=== PATIENT | male | born 1955 | race Caucasian/White ===

== ENCOUNTER 2018-08-25 12:40 | Emergency (ER) | payer SELFPAY ==
[~2018-08-25] VITALS: Ht 162.6 cm; Wt 96.9 kg
[2018-08-25] MEDS ORDERED: IV NORMAL SALINE 1,000ML 1,000 ML IV SCH (12:55)
[2018-08-25 13:23] LABS: BASO # 0.1 x10^3/uL (0.0-0.2); BASO % 1 % (0-3); EOS # 0.6 x10^3/uL (0.0-0.7); EOS % 6 % (0-3); HEMOGLOBIN 14.4 g/dL (13.0-17.5); LYMPH # 1.9 x10^3/uL (1.0-4.8); LYMPH % 17 % (24-48); MEAN CORPUSCULAR HEMOGLOBIN 31 pg (25-35); MEAN CORPUSCULAR HGB CONC 34 g/dL (31-37); MEAN CORPUSCULAR VOLUME 90 fL (79-100); MONO # 0.8 x10^3/uL (0.0-1.1); MONO % 7 % (0-9); NEUT # 7.8 x10^3uL (1.8-7.7); NEUT % 70 % (31-73); PLATELET COUNT 241 x10^3/uL (140-400); RED BLOOD COUNT 4.66 x10^6/uL (4.30-5.70); RED CELL DISTRIBUTION WIDTH 13.2 % (11.5-14.5); WHITE BLOOD COUNT 11.2 x10^3/uL (4.0-11.0)
--- NOTE | 2018-08-25 13:28 | RAD ---
Chest, 2 views, 08/25/2018: HISTORY: Shortness of breath The heart size is normal. There is calcific plaquing of the aorta. A dense nodule in the right lower chest is probably a granuloma. There are slightly prominent basilar interstitial markings. No pulmonary consolidation is seen. There is no evidence of pleural fluid. Moderate hypertrophic spurring is present in the spine. IMPRESSION: Minimal basilar interstitial prominence is likely due to fibrosis, although early or mild interstitial edema cannot be excluded. Electronically signed by: Peter Baig MD (08/25/2018 1:25 PM) [facility]
[2018-08-25 13:45] LABS: ALBUMIN 3.2 g/dL (3.4-5.0); ALBUMIN/GLOBULIN RATIO 0.8 (1.0-1.7); CALCIUM 8.9 mg/dL (8.5-10.1); CREATININE 0.9 mg/dL (0.7-1.3); GFR 85.8; TOTAL BILIRUBIN 0.3 mg/dL (0.2-1.0)
[2018-08-25] MEDS ORDERED: IV NORMAL SALINE 50ML 50 ML ONE (13:45)
[2018-08-25] MEDS ORDERED: IPRATRPIUM/ALBUTEROL 0.5/2.5MG 3 ML NEBU. NEB ONE (13:45)
[2018-08-25] MEDS ORDERED: KETOROLAC 30 MG/ML VIAL. IV ONE (13:45)
[2018-08-25] MEDS ORDERED: methylPREDNISolone SOD SUCC PF 125 MG/2 ML VIAL. IV ONE (13:45)
[2018-08-25] MEDS ORDERED: cefTRIAXone SODIUM 1 GM VIAL IV ONE (13:45)
[2018-08-25 13:46] LABS: POTASSIUM 4.4 mmol/L (3.5-5.1)
--- NOTE | 2018-08-25 13:49 | PHYS DOC ---
Past History Past Medical History: COPD Past Surgical History: No Surgical History Smoking: Quit Less Than 1 Year Additional Smoking Information: states he was an every day smoker for 48 yrs, quit last month Alcohol Use: None Drug Use: None Adult General Chief Complaint Chief Complaint: SHORTNESS OF BREATH [facility] HPI Patient is a 63 year old male who presents with complaining of shortness of breath. Patient complaining of constant shortness of breath that getting worse with activity for the last 2 days and associated with productive cough with yellow sputum without chest pain, fever, sick contacts, nausea and vomiting, sore throat and earache. Patient complaining of mild myalgia and headache without neck pain. Patient had history of COPD and quit smoking one month ago and took leftover of inhaler at home without improvement. Patient was not seen by a primary care physician for several years. Review of Systems Review of Systems Constitutional: Denies fever or chills [] Eyes: Denies change in visual acuity, redness, or eye pain [] HENT: Denies nasal congestion or sore throat [] Respiratory: Reports cough and shortness of breath Cardiovascular: No additional information not addressed in HPI [] GI: Denies abdominal pain, nausea, vomiting, bloody stools or diarrhea [] : Denies dysuria or hematuria [] Musculoskeletal: Denies back pain or joint pain [] Integument: Denies rash or skin lesions [] Neurologic: Denies headache, focal weakness or sensory changes [] Endocrine: Denies polyuria or polydipsia [] All other systems were reviewed and found to be within normal limits, except as documented in this note. Current Medications Current Medications Current Medications Medications (Trade) Dose Ordered Sig/[facility] Start Time Stop Time Status Last Admin Dose Admin Albuterol/ Ipratropium (Duoneb) 3 ml 1X ONCE 08/25/18 13:45 08/25/18 13:46 08/25/18 13:20 3 ML Ceftriaxone Sodium 1 gm/ Sodium Chloride 50 ml @ 100 mls/hr 1X ONCE 08/25/18 13:45 08/25/18 14:14 Ketorolac Tromethamine (Toradol 30mg Vial) 30 mg 1X ONCE 08/25/18 13:45 08/25/18 13:46 Methylprednisolone Sodium Succinate (SOLU-Medrol 125MG VIAL) 125 mg 1X ONCE 08/25/18 13:45 08/25/18 13:46 08/25/18 13:32 125 MG Sodium Chloride 1,000 ml @ 1,000 mls/hr Q1H 08/25/18 12:55 08/25/18 13:54 08/25/18 13:31 1,000 MLS/HR Allergies Allergies Allergies Coded Allergies Type Severity Reaction Last Updated Verified No Known Drug Allergies 08/25/18 No Physical Exam Physical Exam Constitutional: Well developed, well nourished, mild distress, non-toxic appearance. [] HENT: Normocephalic, atraumatic, bilateral external ears normal, oropharynx moist, no oral exudates, nose normal. [] Eyes: PERRLA, EOMI, conjunctiva normal, no discharge. [] Neck: Normal range of motion, no tenderness, supple, no stridor. [] Cardiovascular:Heart rate regular rhythm, no murmur [] Lungs & Thorax: Mild respiratory distress with intercostal retraction, decrease of air movement bilaterally with rhonchi Abdomen: Bowel sounds normal, soft, no tenderness, no masses, no pulsatile masses. [] Skin: Warm, dry, no erythema, no rash. [] Back: No tenderness, no CVA tenderness. [] Extremities: No tenderness, no cyanosis, no clubbing, ROM intact, no edema. [] Neurologic: Alert and oriented X 3, normal motor function, normal sensory function, no focal deficits noted. [] Psychologic: Affect normal, judgement normal, mood normal. [] Current Patient Data Vital Signs Vital Signs Date Time Temp Pulse Resp B/P (MAP) Pulse Ox O2 Delivery O2 Flow Rate FiO2 08/25/18 13:21 97 Room Air 08/25/18 12:40 98.5 95 28 Lab Results Laboratory Tests Test 08/25/18 13:05 White Blood Count 11.2 x10^3/uL (4.0-11.0) H Red Blood Count 4.66 x10^6/uL (4.30-5.70) Hemoglobin 14.4 g/dL (13.0-17.5) Hematocrit 42.0 % (39.0-53.0) Mean Corpuscular Volume 90 fL (79-100) Mean Corpuscular Hemoglobin 31 pg (25-35) Mean Corpuscular Hemoglobin Concent 34 g/dL (31-37) Red Cell Distribution Width 13.2 % (11.5-14.5) Platelet Count 241 x10^3/uL (140-400) Neutrophils (%) (Auto) 70 % (31-73) Lymphocytes (%) (Auto) 17 % (24-48) L Monocytes (%) (Auto) 7 % (0-9) Eosinophils (%) (Auto) 6 % (0-3) H Basophils (%) (Auto) 1 % (0-3) Neutrophils # (Auto) 7.8 x10^3uL (1.8-7.7) H Lymphocytes # (Auto) 1.9 x10^3/uL (1.0-4.8) Monocytes # (Auto) 0.8 x10^3/uL (0.0-1.1) Eosinophils # (Auto) 0.6 x10^3/uL (0.0-0.7) Basophils # (Auto) 0.1 x10^3/uL (0.0-0.2) Troponin I Quantitative 0.096 ng/mL (0-0.055) H EKG EKG EKG interpreted by me. EKG at 1359 showed normal sinus rhythm at rate of 84, abnormal left axis deviation, anterior fascicular block, poor R-wave progress in anteroseptal leads, no acute ST and T-wave abnormalities, Radiology/Procedures Radiology/[place] [address] IMAGING REPORT Signed PATIENT: AMITA ROSARIO ACCOUNT: [id number] : 1955 LOCATION: ER AGE: 63 SEX: M EXAM STATUS: REG ER ORD. PHYSICIAN: MARITO MYRICK MD REASON: shortness of breath PROCEDURE: CHEST PA & LATERAL Chest, 2 views, 08/25/2018: HISTORY: Shortness of breath The heart size is normal. There is calcific plaquing of the aorta. A dense nodule in the right lower chest is probably a granuloma. There are slightly prominent basilar interstitial markings. No pulmonary consolidation is seen. There is no evidence of pleural fluid. Moderate hypertrophic spurring is present in the spine. IMPRESSION: Minimal basilar interstitial prominence is likely due to fibrosis, although early or mild interstitial edema cannot be excluded. Electronically signed by: Peter Walker MD (08/25/2018 1:25 PM) [facility] DICTATED AND SIGNED BY: PETER WALKER MD DATE: 08/25/18 1323 CC: MARITO MYRICK MD; PCP,NO ~ Course & Med Decision Making Course & Med Decision Making Pertinent Labs and Imaging studies reviewed. (See chart for details) Evaluation of patient in ER showed 63-year-old male patient with history of COPD and complaining of cough and shortness of breath for several days. Patient had mild respiratory distress improved with DuoNeb and Solu-Medrol. Patient refuses hospitalization even his troponin was elevated and wanted to go home and taken off his 5 and 9 years old sons. Patient signed AGAINST MEDICAL ADVICE. Dragon Disclaimer Dragon Disclaimer This electronic medical record was generated, in whole or in part, using a voice recognition dictation system. Departure Departure: Impression: Primary Impression: COPD exacerbation Additional Impressions: Elevated troponin Noncompliance by refusing service CHF (congestive heart failure) Disposition: 07 AGAINST MEDICAL ADVICE (at 1431) Condition: IMPROVED Referrals: PCP,NO (PCP) Patient Instructions: Chronic Obstructive Pulmonary Disease, Chronic Obstructive Pulmonary Disease Exacerbation, Heart Disease Prevention, Heart Failure Additional Instructions: Follow-up with your primary care physician in 1-2 days Return to ER if not getting better Scripts Albuterol Sulfate (PROAIR HFA INHALER) 8.5 Gm Hfa.aer.ad 2 PUFF INH PRN Q6HRS PRN for SHORTNESS OF BREATH, #1 INHALER 0 Refills Prov: MARITO MYRICK MD 08/25/18 Prednisone (PREDNISONE) 50 Mg Tablet 1 TAB PO DAILY, #7 TAB Prov: MARITO MYRICK MD 08/25/18 Azithromycin (ZITHROMAX) 250 Mg Tablet 1 PKG PO UD, #1 PKG Prov: MARITO MYRICK MD 08/25/18 Benzonatate (TESSALON PERLE) 100 Mg Capsule 1 CAP PO TID, #30 CAP Prov: MARITO MYRICK MD 08/25/18 Problem Qualifiers MARITO MYRICK MD Aug 25, 2018 13:49
[2018-08-25] MEDS ORDERED: AZIT250T PO (14:35)
[2018-08-25] MEDS ORDERED: BENZ100C PO (14:35)
[2018-08-25] MEDS ORDERED: PRED50TA PO (14:35)
[2018-08-25] MEDS ORDERED: ALBU8.5H8 INH (14:36)
[2018-08-25 14:45] VITALS: BP 138/88
--- NOTE | 2018-08-25 15:53 | EKG ---
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
== END 2018-08-25 14:45 | disposition left against medical advice (07) ==
LOC: ER 12:40
DX: J44.1 Chronic obstructive pulmonary disease with (acute) exacerbation (principal); Z91.19 Patient's noncompliance with other medical treatment and regimen; I50.9 Heart failure, unspecified; Z87.891 Personal history of nicotine dependence
CPT/HCPCS: 36415; 71046; 80053; 82550; 83880; 84484; 85025; 93005; 94640; 96365; 96375; 99285; J0696; J1885; J2930; J7620; J7030

== ENCOUNTER 2018-09-15 13:53 | Emergency (ER) | payer SELFPAY ==
[~2018-09-15 13:53] MED LIST: ALBU8.5H8 INH; AZIT250T PO; BENZ100C PO; PRED50TA PO
[2018-09-15 14:06] VITALS: BP 162/110
[2018-09-15] MEDS ORDERED: methylPREDNISolone SOD SUCC PF 125 MG/2 ML VIAL. IM ONE (14:30)
[2018-09-15] MEDS ORDERED: IPRATRPIUM/ALBUTEROL 0.5/2.5MG 3 ML NEBU. NEB ONE (14:30)
[2018-09-15] MEDS ORDERED: methylPREDNISolone SOD SUCC PF 125 MG/2 ML VIAL. ONE (14:36)
[2018-09-15] MEDS ORDERED: METH4TAB2 PO (15:10)
--- NOTE | 2018-09-15 15:10 | PHYS DOC ---
Past History Past Medical History: COPD Past Surgical History: No Surgical History Smoking: Quit Less Than 1 Year Alcohol Use: None Drug Use: None Adult General Chief Complaint Chief Complaint: SHORTNESS OF BREATH HPI HPI Patient is a 63 year old male who presents with complaining of shortness of breath since yesterday that getting worse today. Patient states he was going to his doctor office but while got out of his car and walking toward the hospital felt more shortness of breath and decided to come to ER. Patient denies cough, chest pain, fever and chills, dizziness, focal neuro deficit. Patient was seen in this emergency room recently with extensive evaluation and states he felt better after treatment given in emergency room. Patient refuses hospitalization last time and doesn't want to stay at Hospital this time also. Review of Systems Review of Systems Constitutional: Denies fever or chills [] Eyes: Denies change in visual acuity, redness, or eye pain [] HENT: Denies nasal congestion or sore throat [] Respiratory: Denies cough or shortness of breath [] Cardiovascular: No additional information not addressed in HPI [] GI: Denies abdominal pain, nausea, vomiting, bloody stools or diarrhea [] : Denies dysuria or hematuria [] Musculoskeletal: Denies back pain or joint pain [] Integument: Denies rash or skin lesions [] Neurologic: Denies headache, focal weakness or sensory changes [] Endocrine: Denies polyuria or polydipsia [] All other systems were reviewed and found to be within normal limits, except as documented in this note. Current Medications Current Medications Current Medications Medications (Trade) Dose Ordered Sig/[facility] Start Time Stop Time Status Last Admin Dose Admin Albuterol/ Ipratropium (Duoneb) 3 ml 1X ONCE 09/15/18 14:30 09/15/18 14:36 DC 09/15/18 14:41 3 ML Methylprednisolone Sodium Succinate (SOLU-Medrol 125MG VIAL) 125 mg STK-MED ONCE 09/15/18 14:36 09/15/18 14:37 DC Allergies Allergies Allergies Coded Allergies Type Severity Reaction Last Updated Verified No Known Drug Allergies 08/25/18 No Physical Exam Physical Exam Constitutional: Well developed, well nourished, mild distress, non-toxic appearance. [] HENT: Normocephalic, atraumatic, bilateral external ears normal, oropharynx moist, no oral exudates, nose normal. [] Eyes: PERRLA, EOMI, conjunctiva normal, no discharge. [] Neck: Normal range of motion, no tenderness, supple, no stridor. [] Cardiovascular:Heart rate regular rhythm, no murmur [] Lungs & Thorax: Bilateral breath sounds clear to auscultation [] Abdomen: Bowel sounds normal, soft, no tenderness, no masses, no pulsatile masses. [] Skin: Warm, dry, no erythema, no rash. [] Back: No tenderness, no CVA tenderness. [] Extremities: No tenderness, no cyanosis, no clubbing, ROM intact, no edema. [] Neurologic: Alert and oriented X 3, normal motor function, normal sensory function, no focal deficits noted. [] Psychologic: Affect anxious, judgement normal, mood normal. [] Current Patient Data Vital Signs Vital Signs Date Time Temp Pulse Resp B/P (MAP) Pulse Ox O2 Delivery O2 Flow Rate FiO2 09/15/18 14:06 101 24 97 Room Air EKG EKG [] Radiology/Procedures Radiology/Procedures [] Course & Med Decision Making Course & Med Decision Making discharge: I've spoken with the patient and/or caregivers. I've explained the patient's condition, diagnosis and treatment plan based on information available to me at this time. I've answered the patient's and/or caregivers questions and addressed any concerns. The patient and/or caregivers have a good understanding the patient's diagnosis, condition and treatment plan as can be expected at this point. Vital signs have been stabilized. The patient's condition is stable for discharge from the emergency department. The patient will pursue further outpatient evaluation with her primary care provider or other designated consulting physician as outlined in the discharge instructions. Patient and/or caregivers are agreeable to this plan of care and follow-up instructions have been explained in detail. The patient and/or caregivers have received these instructions in written format and expressed understanding of these discharge instructions. The patient and her caregivers are aware that if any significant change in condition or worsening of symptoms should prompt him to immediately return to this of the closest emergency department. If an emergent department is not readily available I would encourage him to call 911. Kaylin Disclaimer Kaylin Disclaimer This electronic medical record was generated, in whole or in part, using a voice recognition dictation system. Departure Departure: Impression: Primary Impression: Dyspnea Additional Impression: COPD (chronic obstructive pulmonary disease) Disposition: HOME, SELF-CARE (at 1509) Condition: IMPROVED Referrals: STEPHANIE FERMIN MD (PCP) Patient Instructions: Shortness of Breath Additional Instructions: Drink plenty of liquids Follow-up with your primary care physician in 3-5 days Return to ER if not getting better Scripts Methylprednisolone (MEDROL) 4 Mg Tab.ds.pk 1 PKG PO UD for as directed, #1 PKG Prov: MARITO MYRICK MD 09/15/18 Problem Qualifiers MARITO MYRICK MD Sep 15, 2018 15:10
== END 2018-09-15 15:20 | disposition home or self-care (01) ==
LOC: ER 13:53
DX: J44.9 Chronic obstructive pulmonary disease, unspecified (principal); Z87.891 Personal history of nicotine dependence
CPT/HCPCS: 94640; 96372; 99283; J2930; J7620

== ENCOUNTER 2018-09-18 09:19 | Inpatient (IN) | payer SELFPAY ==
[~2018-09-18] VITALS: Ht 165.1 cm; Wt 99.2 kg
[~2018-09-18 09:19] MED LIST changes: +METH4TAB2 PO
[2018-09-18] MEDS ORDERED: IPRATROPIUM BROMIDE 0.5 MG/2.5 ML NEBU. NEB ONE (09:30)
[2018-09-18] MEDS ORDERED: ALBUTEROL SULFATE 2.5 MG/3 ML NEBU. CONT NEB ONE (09:30)
[2018-09-18] MEDS ORDERED: IPRATRPIUM/ALBUTEROL 0.5/2.5MG 3 ML NEBU. NEB ONE (09:30)
[2018-09-18] MEDS ORDERED: predniSONE 20 MG TABLET PO ONE (09:45)
--- NOTE | 2018-09-18 10:10 | RAD ---
EXAM: CHEST 1 VIEW History: Shortness of breath COMPARISON: 08/25/2018 TECHNIQUE: Single portable radiograph of the chest FINDINGS: Mild cardiomegaly. There is mild prominent appearing bilateral interstitial lung markings. Minimal bibasilar lung airspace opacities. IMPRESSION: 1. Mild congestive changes. 2. Minimal bibasilar lung airspace opacities likely atelectasis or infiltrates. Electronically signed by: Alphonso San MD (09/18/2018 10:07 AM) [facility]
[2018-09-18] MEDS ORDERED: IOHEXOL 300 MG/ML 75 ML VIAL. IV ONE (10:30)
--- NOTE | 2018-09-18 10:43 | EKG ---
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
[2018-09-18 11:06] LABS: BASO % 0 % (0-3); EOS # 0.2 x10^3/uL (0.0-0.7); EOS % 2 % (0-3); HEMATOCRIT 44.4 % (39.0-53.0); HEMOGLOBIN 14.4 g/dL (13.0-17.5); LYMPH # 2.8 x10^3/uL (1.0-4.8); LYMPH % 24 % (24-48); MEAN CORPUSCULAR HEMOGLOBIN 30 pg (25-35); MEAN CORPUSCULAR HGB CONC 32 g/dL (31-37); MEAN CORPUSCULAR VOLUME 91 fL (79-100); MONO # 1.1 x10^3/uL (0.0-1.1); MONO % 10 % (0-9); NEUT # 7.6 x10^3uL (1.8-7.7); NEUT % 65 % (31-73); PLATELET COUNT 255 x10^3/uL (140-400); RED BLOOD COUNT 4.85 x10^6/uL (4.30-5.70); RED CELL DISTRIBUTION WIDTH 13.6 % (11.5-14.5); WHITE BLOOD COUNT 11.7 x10^3/uL (4.0-11.0)
--- NOTE | 2018-09-18 11:07 | RAD ---
Examination: CT angiography chest HISTORY: History of shortness of breath COMPARISON: None available TECHNIQUE: Axial CT angiographic images were performed with IV contrast. Coronal and sagittal 3-D MIP reformats are performed Exposure: One or more of the following individualized dose reduction techniques were utilized for this examination: 1. Automated exposure control 2. Adjustment of the mA and/or kV according to patient size 3. Use of iterative reconstruction technique FINDINGS: The visualized thyroid gland grossly appears unremarkable. The central airways are patent. Mild cardiomegaly. The caliber of the aorta grossly appears unremarkable. Few prominent mediastinal lymph nodes identified with the largest measuring 1 cm in the pretracheal region. No evidence of filling defect identified in the main pulmonary arterial trunk and right and left main pulmonary arteries and the visualized lobar, segmental branches of the pulmonary arteries. There is mild prominent appearing bilateral interstitial lung markings likely mild congestive changes. Small 4 mm nodule identified in the left upper lobe of the lung and the right lower lobe of the lung. Trace right pleural effusion identified. There is mild reflux of contrast into the hepatic veins and the inferior vena cava probably due to elevated right heart pressure.. There is a 3.5 cm density identified in the left adrenal gland measuring 5 Hounsfield units and demonstrating some fat within adrenal myelolipoma. Mild degenerative changes thoracic spine. IMPRESSION: 1. Diffuse prominent appearing bilateral interstitial lung markings likely mild congestive changes. 2. 4 mm nodule identified in the left upper lobe and right lower lobe of the lung. Follow-up per Fleischner Society guidelines with follow-up CT in 6-12 months. 3. No evidence of pulmonary embolism. 4. 3.5 cm left adrenal myelolipoma. Electronically signed by: Alphonso San MD (09/18/2018 11:04 AM) [facility]
[2018-09-18 11:26] LABS: CALCIUM 8.4 mg/dL (8.5-10.1); CREATININE 0.9 mg/dL (0.7-1.3); GFR 85.8; POTASSIUM 4.2 mmol/L (3.5-5.1)
[2018-09-18] MEDS ORDERED: FUROSEMIDE 40 MG/4 ML VIAL IVP ONE (11:30)
[2018-09-18 11:34] LABS: BGAS PH 7.39 (7.35-7.46)
--- NOTE | 2018-09-18 11:45 | ED.ADGEN ---
Past History Past Medical History: COPD Past Surgical History: No Surgical History Smoking: Quit Less Than 1 Year Alcohol Use: None Drug Use: None Adult General Chief Complaint Chief Complaint Shortness of breath HPI HPI Patient is a 63-year-old male with history of COPD who presents with progressive shortness of breath over the past several days. Patient's been evaluated in the emergency department twice within the past 30 days for the same complaint. Patient as recently, the patient was evaluated 3 days ago and treated for COPD exacerbation and started on a Medrol Dosepak which she is taking. Patient symptoms are worse with exertion, when supine. Reports chest tightness, denies chest pain. Denies increased leg pain or swelling. No history of DVT or PE. Patient is a former smoker and quit within the past 30 days. 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 [] Review of Systems Review of Systems Review symptoms as per history of present illness. All other review symptoms are negative.[] All other systems were reviewed and found to be within normal limits, except as documented in this note. Current Medications Current Medications Current Medications Medications (Trade) Dose Ordered Sig/[facility] Start Time Stop Time Status Last Admin Dose Admin Albuterol Sulfate (Ventolin) 10 mg 1X ONCE 09/18/18 09:30 09/18/18 09:45 DC 09/18/18 09:37 10 MG Albuterol/ Ipratropium (Duoneb) 3 ml 1X ONCE 09/18/18 09:30 09/18/18 09:32 DC Furosemide (Lasix) 40 mg 1X ONCE 09/18/18 11:30 09/18/18 11:31 DC 09/18/18 11:41 40 MG Iohexol (Omnipaque 300 Mg/ml) 75 ml 1X ONCE 09/18/18 10:30 09/18/18 10:31 DC 09/18/18 10:36 75 ML Ipratropium [place] (Atrovent) 1 mg 1X ONCE 09/18/18 09:30 09/18/18 09:45 DC 09/18/18 09:38 1 MG Prednisone (Prednisone) 60 mg 1X ONCE 09/18/18 09:45 09/18/18 09:46 DC 09/18/18 10:01 60 MG Allergies Allergies Allergies Coded Allergies Type Severity Reaction Last Updated Verified No Known Drug Allergies 08/25/18 No Physical Exam Physical Exam Constitutional: Well developed, well nourished, no acute distress, non-toxic appearance. [] HENT: Normocephalic, atraumatic, bilateral external ears normal, oropharynx moist, no oral exudates, nose normal. [] Eyes: PERRLA, EOMI, conjunctiva normal, no discharge. [] Neck: Normal range of motion, no tenderness, supple, no stridor. [] Cardiovascular:Heart rate regular rhythm, no murmur [] Lungs & Thorax: Aspirations labored, tachypnea, rate 38-42 with prolonged expiratory phase and conversational dyspnea, significantly diminished breath sounds bilaterally with coarse wheezes[] Abdomen: Bowel sounds normal, soft, no tenderness, no masses, no pulsatile masses. [] Skin: Warm, dry, no erythema, no rash. [] Back: No tenderness, no CVA tenderness. [] Extremities: No tenderness, no cyanosis, no clubbing, ROM intact, no edema. [] Neurologic: Alert and oriented X 3, normal motor function, normal sensory function, no focal deficits noted. [] Psychologic: Affect, anxious. [] Current Patient Data Vital Signs Vital Signs Date Time Temp Pulse Resp B/P (MAP) Pulse Ox O2 Delivery O2 Flow Rate FiO2 09/18/18 09:42 99 Room Air 09/18/18 09:20 97.4 98 30 Lab Results Laboratory Tests Test 09/18/18 10:14 09/18/18 10:52 Blood pH 7.39 (7.35-7.46) Blood Gas PCO2 46 mmHg (35-46) Blood Gas PO2 71 mmHg (80-100) L Blood Gas HCO3 28 mmol/L (21-28) Arterial Bld O2 Saturation (Calc) 94 % (92-99) FiO2 21 % White Blood Count 11.7 x10^3/uL (4.0-11.0) H Red Blood Count 4.85 x10^6/uL (4.30-5.70) Hemoglobin 14.4 g/dL (13.0-17.5) Hematocrit 44.4 % (39.0-53.0) Mean Corpuscular Volume 91 fL (79-100) Mean Corpuscular Hemoglobin 30 pg (25-35) Mean Corpuscular Hemoglobin Concent 32 g/dL (31-37) Red Cell Distribution Width 13.6 % (11.5-14.5) Platelet Count 255 x10^3/uL (140-400) Neutrophils (%) (Auto) 65 % (31-73) Lymphocytes (%) (Auto) 24 % (24-48) Monocytes (%) (Auto) 10 % (0-9) H Eosinophils (%) (Auto) 2 % (0-3) Basophils (%) (Auto) 0 % (0-3) Neutrophils # (Auto) 7.6 x10^3uL (1.8-7.7) Lymphocytes # (Auto) 2.8 x10^3/uL (1.0-4.8) Monocytes # (Auto) 1.1 x10^3/uL (0.0-1.1) Eosinophils # (Auto) 0.2 x10^3/uL (0.0-0.7) Basophils # (Auto) 0.0 x10^3/uL (0.0-0.2) Sodium Level 141 mmol/L (136-145) Potassium Level 4.2 mmol/L (3.5-5.1) Chloride Level 103 mmol/L (98-107) Carbon Dioxide Level 30 mmol/L (21-32) Anion Gap 8 (6-14) Blood Urea Nitrogen 24 mg/dL (8-26) Creatinine 0.9 mg/dL (0.7-1.3) Estimated GFR (Cockcroft-Gault) 85.8 Glucose Level 93 mg/dL (70-99) Calcium Level 8.4 mg/dL (8.5-10.1) L Troponin I Quantitative 0.115 ng/mL (0-0.055) H ID-Rvc-N-Type Natriuretic Peptide 805 pg/mL (0-124) H EKG EKG [EKG: Normal sinus rhythm without acute ST segment elevation] Radiology/Procedures Radiology/Procedures [Chest x-ray/CTA chest: Pulmonary vascular congestion, no evidence of PE.] Course & Med Decision Making Course & Med Decision Making Pertinent Labs and Imaging studies reviewed. (See chart for details) [Patient with mild to moderate respiratory distress with COPD exacerbation and suspected undiagnosed congestive heart failure and concern for possible acute coronary syndrome. Nebulized breathing treatment, steroids and Lasix given with significant improvement. Patient agrees to hospital admission for further evaluation treatment] Final Impression Final Impression [] Dragon Disclaimer Dragon Disclaimer This electronic medical record was generated, in whole or in part, using a voice recognition dictation system. TEJA GARCIA DO Sep 18, 2018 11:45
[2018-09-18] MEDS ORDERED: ONDANSETRON PF 4 MG/2 ML VIAL. IV PRN (13:00)
[2018-09-18 13:55] VITALS: BP 153/90
--- NOTE | 2018-09-18 17:12 | HP ---
ADMIT DATE: 09/18/2018 HISTORY OF PRESENT ILLNESS: The patient is a 63-year-old male patient with a past medical history significant for COPD, who came to the Emergency Room complaining of progressive shortness of breath over the past several days. He apparently has been evaluated in the Emergency Department twice within the last 30 days for the same complaint. He was recently treated with COPD exacerbation. He was started on Medrol Dosepak. The patient's symptoms have been worse with exertion. He has also what seemed to be orthopnea, chest tightness; however, he denied any chest pain. Denied any swelling of the legs. Denied any cough, phlegm, or hemoptysis. He has never had any history of DVT or PE. He is a former smoker, started smoking when he was at the seventh grade and has been smoking a pack a day for all this time. He quit about a month and half ago. 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 PAST MEDICAL HISTORY: Significant for COPD and generalized osteoarthritis. He apparently was seen about 2 years ago by a security escort and underwent pulmonary function test, which showed that he has severe COPD. PAST SURGICAL HISTORY: Significant for tonsillectomy. ALLERGIES: He has no known drug allergies. MEDICATIONS: He is on albuterol inhaler and has received a course of Zithromax as well as tapering course of steroids. FAMILY HISTORY: He is adopted. He does not know his biological parents. SOCIAL HISTORY: He is , has 2 children. He is an ex-smoker, used to smoke a pack a day for more than 45 years. He quit about a month and half ago. He drinks alcohol very occasionally. He does not use any drugs. 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 REVIEW OF SYSTEMS: The patient denied any blurring of vision, cataract, glaucoma or macular degeneration. Denied any earache, tinnitus or sensorineural deafness. Denied any nosebleeds, stuffy nose or postnasal drip. Denied any sore throat, sore tongue, toothache, hoarseness of voice or difficulty swallowing. Denied any nausea, vomiting, diarrhea or constipation. Denied any hematemesis, melena or hematochezia. Denied any dysuria, frequency or hematuria. Denied any chest pain. Did complain of shortness of breath and orthopnea. Denied any paroxysmal nocturnal dyspnea. Denied any cough, phlegm or hemoptysis. His shortness of breath limits how much he can walk. Denied any dizziness, lightheadedness or vertigo. Denied any chills, rigors or fever. PHYSICAL EXAMINATION: GENERAL: On arrival to the Emergency Room, the patient was clearly tachypneic, but there is no pallor, jaundice or cyanosis. No lymphadenopathy. No thyromegaly. No jugular venous distension. No lower limb edema. VITAL SIGNS: His heart rate was 98, blood pressure was 174/98, temperature was 97.4, respiratory rate was 30, and oxygen saturation was 95% on room air. HEAD, EYES, EARS, NOSE AND THROAT: Showed normocephalic, atraumatic. NECK: Supple. HEART: Showed normal first and second heart sounds with no gallop, rub or murmur. CHEST: Clear to auscultation. No crepitation or rhonchi. ABDOMEN: Distended, soft, nontender. No guarding or rigidity. No organomegaly. All hernial orifices intact. Bowel sounds normal. NEUROLOGIC: He is awake, alert, responding appropriately. All cranial nerves intact. He moves extremities without difficulty. He ambulates without assistance or assistive devices. LABORATORY DATA: His lab work on arrival showed a white cell count of 11,700, hemoglobin 14, hematocrit 44, MCV 91, and platelet count 255,000 with normal manual differential. His chemistry showed that his serum sodium was 141, potassium 4.2, chloride 103, bicarbonate 30, anion gap of 8, BUN 24, creatinine 0.9, estimated GFR was 85 mL per minute. His glucose was 93. Lactic acid was 2.5. Calcium was 8.4. Troponin was 0.115 and beta-natriuretic peptide was 805. His blood gases showed a pH of 7.34, pCO2 of 46, pO2 of 71, bicarbonate 28, and oxygen saturation was 94% on FiO2 of 21%. His chest x-ray showed that he has mild cardiomegaly. There is mild prominent appearing bilateral interstitial lung marking, minimal bibasilar lung airspace opacities. He underwent a CT angio of the chest, which showed that the visualized thyroid gland grossly appears unremarkable. The central airways are patent, mild cardiomegaly. The caliber of the aorta grossly appears unremarkable. A few prominent mediastinal lymph nodes identified with the largest measuring 1 cm in the pretracheal region. No evidence of filling defects identified in the main pulmonary arterial trunk and right and left main pulmonary arteries and the visualized lobar segmental branches of the pulmonary arteries. There is mild prominent appearing bilateral interstitial lung marking, likely mild congestive changes, small 4 mm nodules identified in the left upper lobe of the lung and right lower lobe of the lung, trace right pleural effusion identified. There is mild reflux of the contrast into the hepatic veins and inferior vena cava probably due to elevated right heart pressure. There is a 3.5 cm density identified in the left adrenal gland measuring 5 Hounsfield units and demonstrating some fat within adrenal myelolipoma. He has mild degenerative changes throughout the thoracic spine. IMPRESSION: 1. The patient has diffuse prominent appearing bilateral interstitial lung markings, likely mild congestive changes. 2. Two 4 mm nodules identified in the left upper lobe and right lower lobe of the lung. Follow up per Fleischner Society guidelines with followup CT in 6-12 months. No evidence of pulmonary embolism. 3. A 3.5 cm left adrenal myeloma. The patient was admitted with chronic obstructive pulmonary disease exacerbation. His troponin was elevated. His EKG showed normal sinus rhythm without any ST-T changes. PLAN: My plan is to treat with IV Lasix. I will continue with nebulized albuterol and Atrovent, Solu-Medrol and do 2 more sets of cardiac enzymes, check his lipid profile tomorrow morning, and consult Cardiology team. RO ORELLANA MD DR: PHUONG/delia JOB#: [id number] / [id number]
[2018-09-18] MEDS: ENOXAPARIN 40 MG/0.4 ML SYRINGE. SQ SCH (18:14)
[2018-09-18 19:40] VITALS: BP 161/69
[2018-09-18] MEDS: IPRATRPIUM/ALBUTEROL 0.5/2.5MG 3 ML NEBU. NEB SCH (20:03)
[2018-09-18] MEDS: methylPREDNISolone SOD SUCC PF 40 MG/ML VIAL. IV SCH (22:51)
[2018-09-18 22:53] VITALS: BP 115/63
[2018-09-19 01:49] VITALS: BP 143/87
[2018-09-19] MEDS: IPRATRPIUM/ALBUTEROL 0.5/2.5MG 3 ML NEBU. NEB SCH ×4 (04:54→21:07)
[2018-09-19 06:19] VITALS: BP 112/64
[2018-09-19] MEDS: methylPREDNISolone SOD SUCC PF 40 MG/ML VIAL. IV SCH ×3 (06:30→22:29)
[2018-09-19 06:59] LABS: HEMATOCRIT 42.8 % (39.0-53.0); HEMOGLOBIN 14.2 g/dL (13.0-17.5); RED BLOOD COUNT 4.72 x10^6/uL (4.30-5.70); RED CELL DISTRIBUTION WIDTH 13.6 % (11.5-14.5); WHITE BLOOD COUNT 12.5 x10^3/uL (4.0-11.0)
[2018-09-19 07:19] LABS: ALBUMIN 3.2 g/dL (3.4-5.0); ALBUMIN/GLOBULIN RATIO 0.9 (1.0-1.7); CALCIUM 8.6 mg/dL (8.5-10.1); POTASSIUM 4.3 mmol/L (3.5-5.1); TOTAL BILIRUBIN 0.4 mg/dL (0.2-1.0); TOTAL PROTEIN 6.8 g/dL (6.4-8.2)
[2018-09-19] MEDS ORDERED: FUROSEMIDE 40 MG/4 ML VIAL IVP SCH (09:00)
[2018-09-19 11:20] VITALS: BP 120/71
--- NOTE | 2018-09-19 11:32 | PDOC2 ---
CONSULT Date of Admission DATE: 09/19/18 TIME: 11:31 Reason for Consult: Shortness of breath Referring Physician: Dr. Dwyer Chief Complaint Shortness of breath Source: Chart review, Patient Problem List Problems Medical Problems: (1) COPD exacerbation Status: Acute History of Present Illness 63-year-old male with history of COPD was recently treated for acute COPD exacerbation presented with progressive shortness of breath worse with exertion and associated with retrosternal burning chest pain. He denied any orthopnea/PND , palpitations or syncope. He was a heavy smoker in the past and stopped smoking approximately one and a half month ago. Past Medical History COPD Osteoarthritis Past Surgical History Tonsillectomy Family History Patient is adopted Social History Heavy smoker in the past and quit smoking one and a half months ago. He denied any drug abuse but admitted to occasional alcohol intake. 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 Current Medications Current Medications Albuterol/ Ipratropium (Duoneb) 3 ml 1X ONCE NEB ; Start 09/18/18 at 09:30; Stop 09/18/18 at 09:32; Status DC Albuterol Sulfate (Ventolin) 10 mg 1X ONCE CONT NEB Last administered on at 09:37; Start 09/18/18 at 09:30; Stop 09/18/18 at 09:45; Status DC Ipratropium Leona (Atrovent) 1 mg 1X ONCE NEB Last administered on at 09:38; Start 09/18/18 at 09:30; Stop 09/18/18 at 09:45; Status DC Prednisone (Prednisone) 60 mg 1X ONCE PO Last administered on 09/18/18at 10:01 ; Start 09/18/18 at 09:45; Stop 09/18/18 at 09:46; Status DC Iohexol (Omnipaque 300 Mg/ml) 75 ml 1X ONCE IV Last administered on 09/18/18at 10:36; Start 09/18/18 at 10:30; Stop 09/18/18 at 10:31; Status DC Furosemide (Lasix) 40 mg 1X ONCE IVP Last administered on 09/18/18at 11:41; Start 09/18/18 at 11:30; Stop 09/18/18 at 11:31; Status DC Ondansetron HCl (Zofran) 4 mg PRN Q4HRS PRN IV NAUSEA/VOMITING; Start 09/18/18 at 13:00; Stop 09/19/18 at 12:59 Methylprednisolone Sodium Succinate (SOLU-Medrol 40MG VIAL) 40 mg Q8HRS IV Last administered on 09/19/18at 06:30; Start 09/18/18 at 22:00 Albuterol/ Ipratropium (Duoneb) 3 ml RTQID NEB Last administered on 09/19/18at 10:51; Start 09/18/18 at 20:00 Furosemide (Lasix) 40 mg DAILY IVP Last administered on 09/19/18at 08:59; Start 09/19/18 at 09:00 Enoxaparin Sodium (Lovenox 40mg Syringe) 40 mg Q24H SQ Last administered on 09/18/18at 18:14; Start 09/18/18 at 16:30 Influenza Virus Vaccine (Afluria Trivalent [id number] Syringe) 0.5 ml ONCE ONCE VAX IM ; Start 09/18/18 at 17:00; Stop 09/18/18 at 17:02; Status DC Active Scripts Active Medrol (Methylprednisolone) 4 Mg Tab.ds.pk 1 Pkg PO UD Proair Hfa Inhaler (Albuterol Sulfate) 8.5 Gm Hfa.aer.ad 2 Puff INH PRN Q6HRS PRN Prednisone 50 Mg Tablet 1 Tab PO DAILY Zithromax (Azithromycin) 250 Mg Tablet 1 Pkg PO UD Tessalon Perle (Benzonatate) 100 Mg Capsule 1 Cap PO TID Allergies: Coded Allergies: No Known Drug Allergies (Unverified , 08/25/18) PSYCHOLOGICAL ROS: No: Hallucinations Eyes: No: Loss of vision HEENT: No: Epistaxis Respiratory: YES: SOB with excertion Cardiovascular: yes: Chest Pain Gastrointestinal: No: Vomiting, Diarrhea Genitourinary: No: Dysuria Neurological: No: Seizures Skin: No: Rash General: Alert, Oriented X3 HEENT: Atraumatic, PERRLA Lungs: Other (scattered expiratory rhonchi) Heart: Regular rate Abdomen: Soft, No tenderness Extremities: No edema Psych/Mental Status: Mood NL VITALS Vital Signs Date Time Temp Pulse Resp B/P (MAP) Pulse Ox O2 Delivery O2 Flow Rate FiO2 09/19/18 11:20 98.0 82 20 120/71 (87) 94 Room Air Labs Laboratory Tests Test 09/18/18 10:14 09/18/18 10:52 09/18/18 14:48 09/18/18 18:48 Blood Gas pH 7.39 (7.35-7.46) Blood Gas PCO2 46 mmHg (35-46) Blood Gas PO2 71 mmHg (80-100) Blood Gas HCO3 28 mmol/L (21-28) Arterial Bld O2 Saturation (Calc) 94 % (92-99) FiO2 21 % White Blood Count 11.7 x10^3/uL (4.0-11.0) Red Blood Count 4.85 x10^6/uL (4.30-5.70) Hemoglobin 14.4 g/dL (13.0-17.5) Hematocrit 44.4 % (39.0-53.0) Mean Corpuscular Volume 91 fL (79-100) Mean Corpuscular Hemoglobin 30 pg (25-35) Mean Corpuscular Hemoglobin Concent 32 g/dL (31-37) Red Cell Distribution Width 13.6 % (11.5-14.5) Platelet Count 255 x10^3/uL (140-400) Neutrophils (%) (Auto) 65 % (31-73) Lymphocytes (%) (Auto) 24 % (24-48) Monocytes (%) (Auto) 10 % (0-9) Eosinophils (%) (Auto) 2 % (0-3) Basophils (%) (Auto) 0 % (0-3) Neutrophils # (Auto) 7.6 x10^3uL (1.8-7.7) Lymphocytes # (Auto) 2.8 x10^3/uL (1.0-4.8) Monocytes # (Auto) 1.1 x10^3/uL (0.0-1.1) Eosinophils # (Auto) 0.2 x10^3/uL (0.0-0.7) Basophils # (Auto) 0.0 x10^3/uL (0.0-0.2) Sodium Level 141 mmol/L (136-145) Potassium Level 4.2 mmol/L (3.5-5.1) Chloride Level 103 mmol/L (98-107) Carbon Dioxide Level 30 mmol/L (21-32) Anion Gap 8 (6-14) Blood Urea Nitrogen 24 mg/dL (8-26) Creatinine 0.9 mg/dL (0.7-1.3) Estimated GFR (Cockcroft-Gault) 85.8 Glucose Level 93 mg/dL (70-99) Calcium Level 8.4 mg/dL (8.5-10.1) Troponin I Quantitative 0.115 ng/mL (0-0.055) 0.098 ng/mL (0-0.055) IB-Dxr-F-Type Natriuretic Peptide 805 pg/mL (0-124) Lactic Acid Level 2.5 mmol/L (0.4-2.0) Test 09/19/18 06:24 White Blood Count 12.5 x10^3/uL (4.0-11.0) Red Blood Count 4.72 x10^6/uL (4.30-5.70) Hemoglobin 14.2 g/dL (13.0-17.5) Hematocrit 42.8 % (39.0-53.0) Mean Corpuscular Volume 91 fL (79-100) Mean Corpuscular Hemoglobin 30 pg (25-35) Mean Corpuscular Hemoglobin Concent 33 g/dL (31-37) Red Cell Distribution Width 13.6 % (11.5-14.5) Platelet Count 264 x10^3/uL (140-400) Sodium Level 137 mmol/L (136-145) Potassium Level 4.3 mmol/L (3.5-5.1) Chloride Level 101 mmol/L (98-107) Carbon Dioxide Level 27 mmol/L (21-32) Anion Gap 9 (6-14) Blood Urea Nitrogen 18 mg/dL (8-26) Creatinine 1.0 mg/dL (0.7-1.3) Estimated GFR (Cockcroft-Gault) 76.0 BUN/Creatinine Ratio 18 (6-20) Glucose Level 145 mg/dL (70-99) Calcium Level 8.6 mg/dL (8.5-10.1) Total Bilirubin 0.4 mg/dL (0.2-1.0) Aspartate Amino Transf (AST/SGOT) 20 U/L (15-37) Alanine Aminotransferase (ALT/SGPT) 69 U/L (16-63) Alkaline Phosphatase 68 U/L (46-116) Total Protein 6.8 g/dL (6.4-8.2) Albumin 3.2 g/dL (3.4-5.0) Albumin/Globulin Ratio 0.9 (1.0-1.7) Assessment/Plan 1. Mild acute on chronic diastolic heart failure. Diuresis with Lasix. Check 2 -D echo to assess LV systolic function. 2. Slightly elevated troponin level, most probably demand ischemia/non-STEMI type II. However, due to his risk factors, CAD needs to be ruled out. Plan for Lexiscan nuclear stress test. 3. Acute COPD exacerbation: Treat per IM Thank you for your consultation ABRAHAM MCGEE MD Sep 19, 2018 11:32
[2018-09-19 14:23] VITALS: BP 127/58
[2018-09-19] MEDS: ENOXAPARIN 40 MG/0.4 ML SYRINGE. SQ SCH (17:15)
[2018-09-19 19:20] VITALS: BP 125/69
[2018-09-19 22:00] VITALS: BP 145/79
--- NOTE | 2018-09-20 01:14 | PN ---
DATE: 09/19/2018 SUBJECTIVE: The patient is resting, slightly propped up, definitely feeling much better today. He is not as tachypneic. He is not short of breath. He is able to finish his sentence compared to yesterday. We did treat him with IV Lasix yesterday and this morning. He is also on Solu-Medrol and nebulized albuterol and Atrovent. OBJECTIVE: GENERAL: When I saw him this afternoon, he looked well and was clearly in no apparent respiratory distress. No pallor, jaundice, cyanosis, or thyromegaly. No jugular venous distension. No lower limb edema. VITAL SIGNS: Her heart rate was 82, blood pressure 120/70, temperature was 98, respiratory rate was 20, and oxygen saturation was 94% on room air. HEAD, EYES, EARS, NOSE AND THROAT: Normocephalic, atraumatic. NECK: Supple. HEART: Showed normal first and second heart sounds with no gallop, rub or murmur. CHEST: Showed central trachea, equally reduced expansion, reduced air entry. No crepitation or rhonchi. ABDOMEN: Markedly distended, soft, nontender. NEUROLOGIC: He is awake, alert, and responding appropriately. All cranial nerves intact. He moves extremities without difficulty. LABORATORY DATA: Showed a white cell count is 12,500, hemoglobin 14, hematocrit 42, MCV 91, and platelet count 264,000. His chemistry showed that his serum sodium was 137, potassium was 4.3, chloride 101, bicarbonate 27, anion gap of 9, BUN 18, creatinine 1, estimated GFR was 76 mL per minute, his glucose 145, calcium was 8.6. Total bilirubin, AST, ALT, alkaline phosphatase were normal. His total protein was 6.8, albumin was 3.2. Serum triglycerides were 57, total cholesterol 157, LDL was 66, VLDL was 77, HDL cholesterol was 80 and cholesterol to HDL cholesterol ratio was 1. ASSESSMENT: 1. Chronic obstructive pulmonary disease exacerbation. 2. Generalized osteoarthritis. 3. His chest x-ray showed he has interstitial ____ edema. The patient did well actually on IV Lasix. He was seen by the mud jack nozzleman, who recommended doing an echocardiogram to evaluate left ventricular systolic function. Meanwhile, we will continue with the steroids and Lasix as well as inhaler. RO ORELLANA MD DR: Johana JOB#: [id number] / [id number]
[2018-09-20 05:02] VITALS: BP 122/74
[2018-09-20] MEDS: IPRATRPIUM/ALBUTEROL 0.5/2.5MG 3 ML NEBU. NEB SCH ×2 (05:50→11:06)
[2018-09-20] MEDS: methylPREDNISolone SOD SUCC PF 40 MG/ML VIAL. IV SCH (06:09)
--- NOTE | 2018-09-20 09:02 | PDOC ---
PROGRESS NOTES Diagnosis Problem Problems Medical Problems: (1) COPD exacerbation Status: Acute Assessment Problems Medical Problems: (1) COPD exacerbation Status: Acute 1. Mild acute on chronic diastolic heart failure. clinically compensated. Await echo. 2. demand ischemia/non-STEMI type II. However, due to his risk factors, CAD needs to be ruled out. Plan for Lexiscan nuclear stress test out patient. Currently angina free. await echo and ambulate in halls. 3. Acute COPD exacerbation: Treat per IM Add Aspirin and low dose cardio selective beta tiffany. Plan for outpatient lexiscan MPI. Cholesterol well controlled. Ambulate in halls and if no recurrent chest discomfort or other new symptoms, ok to discharge pending echo review. Echo returned with LVEF 35%. Recommend cardiac cath, transfer to [facility] for cath this afternoon if patient agrees. add statin for plaque stabilization if + coronary disease. Subjective feeling much better, wants to go home, no chest pain, breathing easy, no palpitations. Objective Vital Signs Date Time Temp Pulse Resp B/P (MAP) Pulse Ox O2 Delivery O2 Flow Rate FiO2 09/20/18 05:51 94 Room Air 09/20/18 05:02 98.0 92 18 122/74 (90) Intake and Output 09/20/18 07:00 Intake Total 2130 ml Balance 2130 ml Intake Oral 2130 ml # Voids 7 Abdomen: Normal bowel sounds, Soft Heart: Normal S1, Normal S2, Other (no gallops, clicks or rubs) General: Alert, Oriented X3, Cooperative, No acute distress HEENT: Atraumatic, EOMI, Mucous membr. moist/pink Lungs: Other (mildly decreased bilaterally without crackles, rhonchi or wheezing) Neuro: Normal speech, Strength at 5/5 X4 ext Psych/Mental Status: Mental status NL, Mood NL Review of Relevant I have reviewed the following items casey (where applicable) has been applied. Labs Laboratory Tests Test 09/18/18 10:14 09/18/18 10:52 09/18/18 14:48 09/18/18 18:48 Blood Gas pH 7.39 (7.35-7.46) Blood Gas PCO2 46 mmHg (35-46) Blood Gas PO2 71 mmHg (80-100) Blood Gas HCO3 28 mmol/L (21-28) Arterial Bld O2 Saturation (Calc) 94 % (92-99) FiO2 21 % White Blood Count 11.7 x10^3/uL (4.0-11.0) Red Blood Count 4.85 x10^6/uL (4.30-5.70) Hemoglobin 14.4 g/dL (13.0-17.5) Hematocrit 44.4 % (39.0-53.0) Mean Corpuscular Volume 91 fL (79-100) Mean Corpuscular Hemoglobin 30 pg (25-35) Mean Corpuscular Hemoglobin Concent 32 g/dL (31-37) Red Cell Distribution Width 13.6 % (11.5-14.5) Platelet Count 255 x10^3/uL (140-400) Neutrophils (%) (Auto) 65 % (31-73) Lymphocytes (%) (Auto) 24 % (24-48) Monocytes (%) (Auto) 10 % (0-9) Eosinophils (%) (Auto) 2 % (0-3) Basophils (%) (Auto) 0 % (0-3) Neutrophils # (Auto) 7.6 x10^3uL (1.8-7.7) Lymphocytes # (Auto) 2.8 x10^3/uL (1.0-4.8) Monocytes # (Auto) 1.1 x10^3/uL (0.0-1.1) Eosinophils # (Auto) 0.2 x10^3/uL (0.0-0.7) Basophils # (Auto) 0.0 x10^3/uL (0.0-0.2) Sodium Level 141 mmol/L (136-145) Potassium Level 4.2 mmol/L (3.5-5.1) Chloride Level 103 mmol/L (98-107) Carbon Dioxide Level 30 mmol/L (21-32) Anion Gap 8 (6-14) Blood Urea Nitrogen 24 mg/dL (8-26) Creatinine 0.9 mg/dL (0.7-1.3) Estimated GFR (Cockcroft-Gault) 85.8 Glucose Level 93 mg/dL (70-99) Calcium Level 8.4 mg/dL (8.5-10.1) Troponin I Quantitative 0.115 ng/mL (0-0.055) 0.098 ng/mL (0-0.055) HN-Yai-Z-Type Natriuretic Peptide 805 pg/mL (0-124) Lactic Acid Level 2.5 mmol/L (0.4-2.0) Test 09/19/18 06:24 09/19/18 20:41 White Blood Count 12.5 x10^3/uL (4.0-11.0) Red Blood Count 4.72 x10^6/uL (4.30-5.70) Hemoglobin 14.2 g/dL (13.0-17.5) Hematocrit 42.8 % (39.0-53.0) Mean Corpuscular Volume 91 fL (79-100) Mean Corpuscular Hemoglobin 30 pg (25-35) Mean Corpuscular Hemoglobin Concent 33 g/dL (31-37) Red Cell Distribution Width 13.6 % (11.5-14.5) Platelet Count 264 x10^3/uL (140-400) Sodium Level 137 mmol/L (136-145) Potassium Level 4.3 mmol/L (3.5-5.1) Chloride Level 101 mmol/L (98-107) Carbon Dioxide Level 27 mmol/L (21-32) Anion Gap 9 (6-14) Blood Urea Nitrogen 18 mg/dL (8-26) Creatinine 1.0 mg/dL (0.7-1.3) Estimated GFR (Cockcroft-Gault) 76.0 BUN/Creatinine Ratio 18 (6-20) Glucose Level 145 mg/dL (70-99) Calcium Level 8.6 mg/dL (8.5-10.1) Total Bilirubin 0.4 mg/dL (0.2-1.0) Aspartate Amino Transf (AST/SGOT) 20 U/L (15-37) Alanine Aminotransferase (ALT/SGPT) 69 U/L (16-63) Alkaline Phosphatase 68 U/L (46-116) Total Protein 6.8 g/dL (6.4-8.2) Albumin 3.2 g/dL (3.4-5.0) Albumin/Globulin Ratio 0.9 (1.0-1.7) Triglycerides Level 57 mg/dL (0-150) Cholesterol Level 157 mg/dL (0-200) LDL Cholesterol, Calculated 66 mg/dL (0-100) VLDL Cholesterol, Calculated 11 mg/dL (0-40) Non-HDL Cholesterol Calculated 77 mg/dL (0-129) HDL Cholesterol 80 mg/dL (40-60) Cholesterol/HDL Ratio 1.0 Glucose (Fingerstick) 218 mg/dL (70-99) Medications Current Medications Albuterol/ Ipratropium (Duoneb) 3 ml 1X ONCE NEB ; Start 09/18/18 at 09:30; Stop 09/18/18 at 09:32; Status DC Albuterol Sulfate (Ventolin) 10 mg 1X ONCE CONT NEB Last administered on at 09:37; Start 09/18/18 at 09:30; Stop 09/18/18 at 09:45; Status DC Ipratropium Robbins (Atrovent) 1 mg 1X ONCE NEB Last administered on at 09:38; Start 09/18/18 at 09:30; Stop 09/18/18 at 09:45; Status DC Prednisone (Prednisone) 60 mg 1X ONCE PO Last administered on 09/18/18at 10:01 ; Start 09/18/18 at 09:45; Stop 09/18/18 at 09:46; Status DC Iohexol (Omnipaque 300 Mg/ml) 75 ml 1X ONCE IV Last administered on 09/18/18at 10:36; Start 09/18/18 at 10:30; Stop 09/18/18 at 10:31; Status DC Furosemide (Lasix) 40 mg 1X ONCE IVP Last administered on 09/18/18at 11:41; Start 09/18/18 at 11:30; Stop 09/18/18 at 11:31; Status DC Ondansetron HCl (Zofran) 4 mg PRN Q4HRS PRN IV NAUSEA/VOMITING; Start 09/18/18 at 13:00; Stop 09/19/18 at 12:59; Status DC Methylprednisolone Sodium Succinate (SOLU-Medrol 40MG VIAL) 40 mg Q8HRS IV Last administered on 09/20/18at 06:09; Start 09/18/18 at 22:00 Albuterol/ Ipratropium (Duoneb) 3 ml RTQID NEB Last administered on 09/20/18at 05:50; Start 09/18/18 at 20:00 Furosemide (Lasix) 40 mg DAILY IVP Last administered on 09/19/18at 08:59; Start 09/19/18 at 09:00; Stop 09/19/18 at 13:39; Status DC Enoxaparin Sodium (Lovenox 40mg Syringe) 40 mg Q24H SQ Last administered on 09/19/18at 17:15; Start 09/18/18 at 16:30 Influenza Virus Vaccine (Afluria Trivalent [id number] Syringe) 0.5 ml ONCE ONCE VAX IM Last administered on 09/19/18at 17:17; Start 09/18/18 at 17:00; Stop 09/18/18 at 17:02; Status DC Active Scripts Active Medrol (Methylprednisolone) 4 Mg Tab.ds.pk 1 Pkg PO UD Proair Hfa Inhaler (Albuterol Sulfate) 8.5 Gm Hfa.aer.ad 2 Puff INH PRN Q6HRS PRN Prednisone 50 Mg Tablet 1 Tab PO DAILY Zithromax (Azithromycin) 250 Mg Tablet 1 Pkg PO UD Tessalon Perle (Benzonatate) 100 Mg Capsule 1 Cap PO TID Vitals/I & O Vital Sign - Last 24 Hours 09/19/18 09/19/18 09/19/18 09/19/18 10:51 11:20 14:23 17:02 Temp 98.0 97.8 Pulse 82 91 Resp 20 20 B/P (MAP) 120/71 (87) 127/58 (81) Pulse Ox 94 94 96 95 O2 Delivery Room Air Room Air Room Air Room Air 09/19/18 09/19/18 09/19/18 09/19/18 19:20 20:15 21:07 22:00 Temp 97.8 97.7 Pulse 70 98 Resp 20 20 B/P (MAP) 125/69 (87) 145/79 (101) Pulse Ox 96 94 95 O2 Delivery Room Air Room Air Room Air Room Air 09/20/18 09/20/18 05:02 05:51 Temp 98.0 Pulse 92 Resp 18 B/P (MAP) 122/74 (90) Pulse Ox 96 94 O2 Delivery Room Air Room Air Intake and Output 09/19/18 09/19/18 09/20/18 15:00 23:00 07:00 Intake Total 880 ml 1200 ml 50 ml Balance 880 ml 1200 ml 50 ml RANDAL BURNETTE [employer] Sep 20, 2018 09:02
--- NOTE | 2018-09-20 09:36 | CARD ---
MR#: [id number] Date of Study: 09/20/2018 Ordering Physician: ABRAHAM MCGEE, Referring Physician: RO ORELLANA Tech: Erum Cardoso DEO APPROVED REPORT EXAM: Two-dimensional and M-mode echocardiogram with Doppler and color Doppler. Other Information Quality : AverageHR: 87bpm Rhythm : NSR INDICATION Dyspnea 2D DIMENSIONS RVDd2.8 (2.9-3.5cm)Left Atrium(2D)3.8 (1.6-4.0cm) IVSd1.1 (0.7-1.1cm)Aortic Root(2D)3.4 (2.0-3.7cm) LVDd6.5 (3.9-5.9cm)LVOT Diameter2.2 (1.8-2.4cm) PWd1.3 (0.7-1.1cm)LVDs5.3 (2.5-4.0cm) FS (%) 18.8 %SV81.5 ml M-Mode DIMENSIONS Left Atrium(MM)3.58 (2.5-4.0cm)Aortic Root3.32 (2.2-3.7cm) Aortic Valve AoV Peak Keo.123.4cm/sAoV VTI25.3cm AO Peak GR.6.1mmHgLVOT Peak Keo.116.3cm/s LVOT VTI 23.50cmAO Mean GR.4mmHg JENNIFER (VMAX)3.97aa6VQD (VTI)3.42cm2 Mitral Valve MV E Cptoszgc719.1cm/sMV E Peak Gr.5mmHg MV DECEL WKRN854mbMG A Uoaqmkhr296.6cm/s MV E Mean Gr.2mmHgE/A Ratio1.1 MV A [id number] Pulmonary Valve PV Peak Unabatnn190.5cm/sPV Peak Grad.8mmHg LEFT VENTRICLE The Left Ventricle is mild to moderately dilated. There is borderline to mild concentric left ventric ular hypertrophy. The systolic function is moderately impaired. The Ejection Fraction is estimated at 35%. There is global hypokinesis of the left ventricle. Transmitral Doppler flow pattern is Grade II -pseudonormal filling dynamics. RIGHT VENTRICLE The right ventricle is normal size. There is normal right ventricular wall thickness. The right ventr icular systolic function is normal. ATRIA The left atrium size is normal. The right atrium size is normal. The interatrial septum is intact wit h no evidence for an atrial septal defect or patent foramen ovale as noted on 2-D or Doppler imaging. AORTIC VALVE The aortic valve is trileaflet. The aortic valve is normal in structure and function. Doppler and Col or Flow revealed no significant aortic regurgitation. There is no significant aortic valvular stenosi s. MITRAL VALVE The mitral valve is normal in structure and function. There is no evidence of mitral valve prolapse. There is no mitral valve stenosis. Doppler and Color-flow revealed trace to mild mitral regurgitation . TRICUSPID VALVE The tricuspid valve is normal in structure and function. Doppler and Color Flow revealed trace tricus pid valve regurgitation. There is no tricuspid valve prolapse or vegetation. There is no tricuspid va lve stenosis. PULMONIC VALVE The pulmonary valve is not well visualized. Doppler and Color Flow revealed trace pulmonic valvular r egurgitation. There is no pulmonic valvular stenosis. GREAT VESSELS The aortic root is normal in size. The ascending aorta is normal in size. PERICARDIAL EFFUSION There is no evidence of significant pericardial effusion. Critical Notification Critical Value: No <Conclusion> The Left Ventricle is mild to moderately dilated. The systolic function is moderately impaired. The Ejection Fraction is estimated at 35%. There is global hypokinesis of the left ventricle. There is borderline to mild concentric left ventricular hypertrophy. There is no significant aortic valvular stenosis. Doppler and Color Flow revealed no significant aortic regurgitation. Doppler and Color-flow revealed trace to mild mitral regurgitation. Doppler and Color Flow revealed trace tricuspid valve regurgitation. Signed by : Wesley Swann MD Electronically Approved : 09/20/2018 09:36:11
[2018-09-20 11:01] VITALS: BP 138/77
[2018-09-20] MEDS ORDERED: METOPROLOL TART IMMED RELEASE 25 MG TABLET PO SCH (12:00)
[2018-09-20] MEDS ORDERED: ASPIRIN ENTERIC COATED 325 MG TABLET.DR. PO SCH (12:00)
[2018-09-20 13:43] VITALS: BP 127/80
--- NOTE | 2018-09-20 14:08 | PDOC3 ---
Discharge Summary Visit Information: Date of Admission: Sep 18, 2018 Date of Discharge: Sep 20, 2018 Admitting Diagnosis: COPD exacerbation, dyspnea Final Diagnosis COPD exacerbation Congestive heart failure with ejection fraction of 35% Brief Hospital Course: Allergies: Allergies Coded Allergies Type Severity Reaction Last Updated Verified No Known Drug Allergies 08/25/18 No Vital Signs: Vital Signs Date Time Temp Pulse Resp B/P (MAP) Pulse Ox O2 Delivery O2 Flow Rate FiO2 09/20/18 13:43 98.0 93 18 127/80 (96) 96 Room Air Lab Results: Laboratory Tests Test 09/18/18 14:48 09/18/18 18:48 09/19/18 06:24 09/19/18 20:41 Lactic Acid Level 2.5 mmol/L (0.4-2.0) Troponin I Quantitative 0.098 ng/mL (0-0.055) White Blood Count 12.5 x10^3/uL (4.0-11.0) Red Blood Count 4.72 x10^6/uL (4.30-5.70) Hemoglobin 14.2 g/dL (13.0-17.5) Hematocrit 42.8 % (39.0-53.0) Mean Corpuscular Volume 91 fL (79-100) Mean Corpuscular Hemoglobin 30 pg (25-35) Mean Corpuscular Hemoglobin Concent 33 g/dL (31-37) Red Cell Distribution Width 13.6 % (11.5-14.5) Platelet Count 264 x10^3/uL (140-400) Sodium Level 137 mmol/L (136-145) Potassium Level 4.3 mmol/L (3.5-5.1) Chloride Level 101 mmol/L (98-107) Carbon Dioxide Level 27 mmol/L (21-32) Anion Gap 9 (6-14) Blood Urea Nitrogen 18 mg/dL (8-26) Creatinine 1.0 mg/dL (0.7-1.3) Estimated GFR (Cockcroft-Gault) 76.0 BUN/Creatinine Ratio 18 (6-20) Glucose Level 145 mg/dL (70-99) Calcium Level 8.6 mg/dL (8.5-10.1) Total Bilirubin 0.4 mg/dL (0.2-1.0) Aspartate Amino Transf (AST/SGOT) 20 U/L (15-37) Alanine Aminotransferase (ALT/SGPT) 69 U/L (16-63) Alkaline Phosphatase 68 U/L (46-116) Total Protein 6.8 g/dL (6.4-8.2) Albumin 3.2 g/dL (3.4-5.0) Albumin/Globulin Ratio 0.9 (1.0-1.7) Triglycerides Level 57 mg/dL (0-150) Cholesterol Level 157 mg/dL (0-200) LDL Cholesterol, Calculated 66 mg/dL (0-100) VLDL Cholesterol, Calculated 11 mg/dL (0-40) Non-HDL Cholesterol Calculated 77 mg/dL (0-129) HDL Cholesterol 80 mg/dL (40-60) Cholesterol/HDL Ratio 1.0 Glucose (Fingerstick) 218 mg/dL (70-99) PE: Gen.: I find the patient ambulatory in his room coming from the bathroom today and evaluated him while sitting on the edge of his bed. I observe him to be slightly dyspneic/tachypneic however he does deny any chest pain or worsening of any symptoms. I discussed his upcoming [facility] and he is agreeable and although hungry he understands he must wait to eat. HEENT: Normocephalic atraumatic, PERRLA EOMI, no scleral icterus, oral mucosa pink and moist Neck: Supple, no lymphadenopathy, nontender Cardiovascular: Normal S1 and S2 no murmurs Pulmonary: Breath sounds are diminished but clear no respiratory distress Abdomen: Soft nontender non-distended, bowel sounds present no masses Neuro: Alert and oriented 3, cranial nerves II through XII grossly intact, no lateralizing neuro deficits Skin: Warm, dry Brief Hospital Course: Mr. Patten is a 63 old male with history of COPD presenting on September 18 to the emergency department with several days dyspnea. He had had 2 recent emergency department visits in the past 30 days had failed outpatient treatment for COPD exacerbation. In the emergency department his EKG was normal sinus rhythm with no ST changes, chest x-ray reportedly revealed some interstitial edema and CTA of the chest reportedly negative for PE. His symptoms did improve with intravenous steroids and Lasix in the emergency department and he was admitted for further evaluation and treatment of COPD exacerbation and possibly undiagnosed congestive heart failure. His troponins did elevate somewhat. Initially thought possibly demand ischemia, cardiology was consulted and echocardiogram was performed revealing ejection fraction of 35%. It was determined this morning by the cardiology team that the patient would be transferred to [facility] for cardiac catheterization evaluation today. Discharge Information: Condition at Discharge: Stable Follow Up: Weeks Disposition/Orders: D/C to Another Facility Home Meds: Active Scripts Methylprednisolone (MEDROL) 4 Mg Tab.ds.pk, 1 PKG PO UD for as directed, #1 PKG Prov:MARITO MYRICK MD 09/15/18 Albuterol Sulfate (PROAIR HFA INHALER) 8.5 Gm Hfa.aer.ad, 2 PUFF INH PRN Q6HRS PRN for SHORTNESS OF BREATH, #1 INHALER 0 Refills Prov:MARITO MYRICK MD 08/25/18 Prednisone (PREDNISONE) 50 Mg Tablet, 1 TAB PO DAILY, #7 TAB Prov:MARITO MYRICK MD 08/25/18 Azithromycin (ZITHROMAX) 250 Mg Tablet, 1 PKG PO UD, #1 PKG Prov:MARITO MYRICK MD 08/25/18 Benzonatate (TESSALON PERLE) 100 Mg Capsule, 1 CAP PO TID, #30 CAP Prov:MARITO MYRICK MD 08/25/18 Patient Instructions: Patient Instuctions I discussed the patient ([id number]) with Dr. Dwyer who accepts the patient for admission to [facility] for anticipated cardiac catheterization today per the cardiology team. EMS transfer to [facility]. NIKKI CHANG DO Sep 20, 2018 14:08
== END 2018-09-20 13:50 | disposition short-term general hospital (02) | DRG 280 ==
LOC: ER 09:19 → 1 SOUTH 12:59
PROVIDERS: ADMIT Internal Medicine; ATTEND Internal Medicine
DX: I21.A1 Myocardial infarction type 2 (principal); I50.33 Acute on chronic diastolic (congestive) heart failure; C90.00 Multiple myeloma not having achieved remission; J44.1 Chronic obstructive pulmonary disease with (acute) exacerbation; M15.9 Polyosteoarthritis, unspecified; Z87.891 Personal history of nicotine dependence; Z90.89 Acquired absence of other organs; Z79.899 Other long term (current) drug therapy
CPT/HCPCS: 36415; 36600; 71045; 71275; 80048; 80053; 80061; 82803; 82947; 83605; 83880; 84484; 85025; 85027; 90471; 90756; 93005; 93306; 94640; 94644; 96374; 96376; J1650; J1940; J2920; J7512; J7613; J7620; J7644; Q9967; 99285-25; Q2035

== ENCOUNTER 2019-06-05 11:11 | Emergency (ER) | payer BC ==
[~2019-06-05] VITALS: Ht 165.1 cm; Wt 101.5 kg
[~2019-06-05 11:11] MED LIST changes: +ALBU2.5V8 INH; -ALBU8.5H8 INH
[2019-06-05] MEDS ORDERED: IPRATRPIUM/ALBUTEROL 0.5/2.5MG 3 ML NEBU. ONE (11:30)
--- NOTE | 2019-06-05 11:37 | PHYS DOC ---
Past History Past Medical History: CHF, COPD Past Surgical History: No Surgical History Smoking: Quit Less Than 1 Year Alcohol Use: None Drug Use: None Adult General Chief Complaint Chief Complaint: SHORTNESS OF BREATH HPI HPI Patient is a 63-year-old male presents with shortness of breath. This started approximately a week ago and has been getting worse over time. No new leg swelling. Patient does have a history of COPD as well as CHF. No recent travel. No fever. There has been a cough. No worsening with recumbent position. No chest pain. Nonproductive cough. Patient is out of his inhaler for approximately the past month. He stopped smoking in September 2019. Symptoms are moderate in i ntensity. Worsening shortness of breath with exertion.[] Review of Systems Review of Systems Constitutional: Denies fever or chills [] Eyes: Denies change in visual acuity, redness, or eye pain [] HENT: Denies nasal congestion or sore throat [] Respiratory: See history of present illness[] Cardiovascular: No chest pain or palpitations[] GI: Denies abdominal pain, nausea, vomiting, bloody stools or diarrhea [] : Denies dysuria or hematuria [] Musculoskeletal: Denies back pain or joint pain [] Integument: Denies rash or skin lesions [] Neurologic: Denies headache, focal weakness or sensory changes [] Endocrine: Denies polyuria or polydipsia [] All other systems were reviewed and found to be within normal limits, except as documented in this note. Current Medications Current Medications Current Medications Medications (Trade) Dose Ordered Sig/Cherie Start Time Stop Time Status Last Admin Dose Admin Albuterol/ Ipratropium (Duoneb) 3 ml STK-MED ONCE 06/05/19 11:30 06/05/19 11:31 DC Allergies Allergies Allergies Coded Allergies Type Severity Reaction Last Updated Verified No Known Drug Allergies 08/25/18 No Physical Exam Physical Exam Constitutional: Well developed, well nourished, no acute distress, non-toxic appearance. [] HENT: Normocephalic, atraumatic, bilateral external ears normal, oropharynx moist, no oral exudates, nose normal. [] Eyes: PERRLA, EOMI, conjunctiva normal, no discharge. [] Neck: Normal range of motion, no tenderness, supple, no stridor. [] Cardiovascular:Heart rate regular rhythm, no murmur [] Lungs & Thorax: Diffuse inspiratory and expiratory wheezes bilaterally[] Abdomen: Bowel sounds normal, soft, no tenderness, no masses, no pulsatile masses. [] Skin: Warm, dry, no erythema, no rash. [] Back: No tenderness, no CVA tenderness. [] Extremities: No tenderness, no cyanosis, no clubbing, ROM intact, 1 plus pretibial edema bilaterally. [] Neurologic: Alert and oriented X 3, normal motor function, normal sensory function, no focal deficits noted. [] Psychologic: Affect normal, judgement normal, mood normal. [] EKG EKG EKG shows a sinus rhythm at 102 bpm, left axis at -66, QTC of 489 ms, no ST elevation. No acute EKG changes when compared with 09/18/2018. There is a left anterior fascicular block present. Interpreted by me at 1125.[] Radiology/Procedures Radiology/Procedures PROCEDURE: CHEST PA & LATERAL Indication: Shortness of breath TECHNIQUE: 2 views of the chest with comparison: 09/18/2018. FINDINGS: Heart is normal in size. Diffuse bilateral interstitial opacities are seen. Calcified granuloma in the right lower lobe. No pneumothorax or pleural effusion. Visualized bony thorax is within normal limits. IMPRESSION: Findings of bronchitis/atypical/viral infection or interstitial pulmonary edema.[] Course & Med Decision Making Course & Med Decision Making Pertinent Labs and Imaging studies reviewed. (See chart for details) ED course: Patient arrived, was placed in bed, and tolerated exam well. He was transported to and from radiology with any complications. After return of laboratory findings including the elevated troponin, he was administered aspirin. 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 Attempting to find bed additional family to provide care while he is admitted. Consultation was made with hospitalist service who graciously admitted. 1335 patient noted to have some dropped QRS complexes. Patient placed on pacer pads prophylactically. Cardiology consulted. Dr. Banuelos recommends patient be transported to [place] since may need a pacemaker and that is not available at [facility]. Dr. Avendano graciously accepted. Patient kept at [facility] for a prolonged period of time due to waiting for appropriate care for his children. Second set of cardiac enzymes were obtained that were slightly higher. Patient continued to be chest pain-free. Medical decision making: Patient appears to have a non-ST elevation AR. Whether this is the causative or the results of his difficulty breathing uncertain at this time. Patient's lung sounds did improve with the nebulizer therapy. So this also appears to be evidence of COPD as well. BNP is elevated and chest x-ray is also noted.[] Dragon Disclaimer Dragon Disclaimer This electronic medical record was generated, in whole or in part, using a voice recognition dictation system. Departure Departure: Impression: Primary Impression: Non-STEMI (non-ST elevated myocardial infarction) Additional Impressions: CHF (congestive heart failure) COPD (chronic obstructive pulmonary disease) Disposition: 05 TRANSFER OTHER Admitting Physician: García Lou Condition: IMPROVED Referrals: STEPHANIE FERMIN MD (PCP) Problem Qualifiers Additional Impressions: CHF (congestive heart failure) Heart failure type: unspecified Heart failure chronicity: unspecified Qualified Codes: I50.9 - Heart failure, unspecified COPD (chronic obstructive pulmonary disease) COPD type: unspecified COPD Qualified Codes: J44.9 - Chronic obstructive pulmonary disease, unspecified CASE GALINDO DO Jun 05, 2019 11:37
[2019-06-05 11:46] VITALS: BP 143/103
[2019-06-05] MEDS ORDERED: methylPREDNISolone SOD SUCC PF 125 MG/2 ML VIAL. IV ONE (12:00)
[2019-06-05] MEDS ORDERED: IPRATRPIUM/ALBUTEROL 0.5/2.5MG 3 ML NEBU. NEB ONE (12:00)
--- NOTE | 2019-06-05 12:02 | RAD ---
Indication: Shortness of breath TECHNIQUE: 2 views of the chest with comparison: 09/18/2018. FINDINGS: Heart is normal in size. Diffuse bilateral interstitial opacities are seen. Calcified granuloma in the right lower lobe. No pneumothorax or pleural effusion. Visualized bony thorax is within normal limits. IMPRESSION: Findings of bronchitis/atypical/viral infection or interstitial pulmonary edema. Electronically signed by: Charanjit Lemons DO (06/05/2019 11:59 AM) [facility]
[2019-06-05 12:06] LABS: BASO # 0.1 x10^3/uL (0.0-0.2); BASO % 1 % (0-3); EOS # 0.4 x10^3/uL (0.0-0.7); EOS % 5 % (0-3); HEMATOCRIT 41.2 % (39.0-53.0); HEMOGLOBIN 13.6 g/dL (13.0-17.5); LYMPH # 1.6 x10^3/uL (1.0-4.8); LYMPH % 19 % (24-48); MEAN CORPUSCULAR HEMOGLOBIN 30 pg (25-35); MEAN CORPUSCULAR HGB CONC 33 g/dL (31-37); MEAN CORPUSCULAR VOLUME 92 fL (79-100); MONO # 0.5 x10^3/uL (0.0-1.1); MONO % 6 % (0-9); NEUT # 6.1 x10^3uL (1.8-7.7); NEUT % 70 % (31-73); PLATELET COUNT 236 x10^3/uL (140-400); RED CELL DISTRIBUTION WIDTH 13.6 % (11.5-14.5); WHITE BLOOD COUNT 8.7 x10^3/uL (4.0-11.0)
[2019-06-05] MEDS ORDERED: ALBUTEROL SULFATE 2.5 MG/3 ML NEBU. NEB ONE (12:15)
[2019-06-05 12:58] LABS: ALBUMIN 3.4 g/dL (3.4-5.0); ALBUMIN/GLOBULIN RATIO 1.1 (1.0-1.7); CALCIUM 8.9 mg/dL (8.5-10.1); TOTAL BILIRUBIN 0.3 mg/dL (0.2-1.0); TOTAL PROTEIN 6.6 g/dL (6.4-8.2)
[2019-06-05 12:59] LABS: POTASSIUM 4.2 mmol/L (3.5-5.1)
[2019-06-05] MEDS ORDERED: ASPIRIN 81 MG TAB.CHEW ONE (13:15)
[2019-06-05] MEDS ORDERED: ASPIRIN 81 MG TAB.CHEW PO ONE (13:40)
--- NOTE | 2019-06-05 14:21 | EKG ---
[address] [address] Test Date: 2019-06-05 Test Time: 11:25:14 Pat Name: AMITA ROSARIO Department: Room: Gender: M Peripatologist: SUSI : 1955 Requested By: CASE GALINDO Order Number: [id number] Reading MD: Measurements Intervals [place] Rate: 102 P: 51 TX: 156 QRS: -66 QRSD: 108 T: 90 QT: 372 QTc: 489 Interpretive Statements SINUS TACHYCARDIA LEFT ATRIAL ABNORMALITY ABNORMAL LEFT AXIS DEVIATION LEFT ANTERIOR FASCICULAR BLOCK QRS(T) CONTOUR ABNORMALITY CONSIDER ANTEROSEPTAL MYOCARDIAL DAMAGE T ABNORMALITY IN HIGH LATERAL LEADS ABNORMAL ECG RI6.01 No previous ECG available for comparison
== END 2019-06-05 17:30 | disposition short-term general hospital (02) ==
LOC: ER 11:11
DX: I21.4 Non-ST elevation (NSTEMI) myocardial infarction (principal); J44.9 Chronic obstructive pulmonary disease, unspecified; I50.9 Heart failure, unspecified; Z87.891 Personal history of nicotine dependence
CPT/HCPCS: 36415; 71046; 80053; 83880; 84484; 85025; 93005; 94640; 96374; 99285; J2930; J7613

== ENCOUNTER 2020-02-12 14:43 | Emergency (ER) | payer BC ==
[~2020-02-12] VITALS: Ht 165.1 cm; Wt 106.2 kg
[2020-02-12] MEDS ORDERED: IV NORMAL SALINE 1,000ML 1,000 ML IV ONE (15:30)
[2020-02-12] MEDS ORDERED: CONTRAST GIVEN MC PRN (16:00)
[2020-02-12] MEDS ORDERED: IOHEXOL 300 MG/ML 75 ML VIAL. IV ONE (16:15)
[2020-02-12 16:27] LABS: BASO # 0.1 x10^3/uL (0.0-0.2); BASO % 1 % (0-3); EOS # 0.5 x10^3/uL (0.0-0.7); EOS % 5 % (0-3); HEMATOCRIT 44.5 % (39.0-53.0); LYMPH # 1.4 x10^3/uL (1.0-4.8); LYMPH % 13 % (24-48); MEAN CORPUSCULAR HEMOGLOBIN 30 pg (25-35); MEAN CORPUSCULAR HGB CONC 34 g/dL (31-37); MEAN CORPUSCULAR VOLUME 90 fL (79-100); MONO # 0.9 x10^3/uL (0.0-1.1); MONO % 8 % (0-9); NEUT % 74 % (31-73); PLATELET COUNT 309 x10^3/uL (140-400); RED BLOOD COUNT 4.94 x10^6/uL (4.30-5.70); RED CELL DISTRIBUTION WIDTH 13.5 % (11.5-14.5); WHITE BLOOD COUNT 10.8 x10^3/uL (4.0-11.0)
[2020-02-12 17:28] VITALS: BP 148/88
[2020-02-12 17:38] LABS: CALCIUM 9.2 mg/dL (8.5-10.1); CREATININE 0.9 mg/dL (0.7-1.3); GFR 85.5; POTASSIUM 4.2 mmol/L (3.5-5.1)
[2020-02-12 17:43] LABS: ALBUMIN 3.4 g/dL (3.4-5.0); ALBUMIN/GLOBULIN RATIO 0.9 (1.0-1.7); TOTAL BILIRUBIN 0.2 mg/dL (0.2-1.0); TOTAL PROTEIN 7.4 g/dL (6.4-8.2)
--- NOTE | 2020-02-12 17:49 | PHYS DOC ---
Past History Past Medical History: CHF, COPD (TEJA JOE DO) Past Medical History: GERD (DEN CATALAN MD) Past Surgical History: No Surgical History (TEJA JOE DO) Smoking: Quit Less Than 1 Year Alcohol Use: None Drug Use: None (TEJA JOE DO) Adult General Chief Complaint Chief Complaint: ABDOMINAL PAIN HPI HPI 64-year-old male presents with abdominal pain. He has had periumbilical abdominal pain for the last several days. It is worse the last 2 days. He states that he feels bloated. He has had regular bowel movements. He has noticed that the pain is most acute about an hour after he eats. He has had no vomiting. He has had no history of abdominal surgeries. He has never been evaluated for gallbladder disease. He denies fever or chills. (TEJA JOE DO) Review of Systems Review of Systems Constitutional: Denies fever or chills [] Eyes: Denies change in visual acuity, redness, or eye pain [] HENT: Denies nasal congestion or sore throat [] Respiratory: Denies cough or shortness of breath [] Cardiovascular: No additional information not addressed in HPI [] GI: Abdominal pain. Denies nausea, vomiting, bloody stools or diarrhea [] : Denies dysuria or hematuria [] Musculoskeletal: Denies back pain or joint pain [] Integument: Denies rash or skin lesions [] Neurologic: Denies headache, focal weakness or sensory changes [] Endocrine: Denies polyuria or polydipsia [] All other systems were reviewed and found to be within normal limits, except as documented in this note. (TEJA JOE DO) Current Medications Current Medications Current Medications Medications (Trade) Dose Ordered Sig/Cherie Start Time Stop Time Status Last Admin Dose Admin Info (Do NOT chart on this entry -- for MONITORING) 1 each PRN DAILY PRN 02/12/20 16:00 02/14/20 15:59 Iohexol (Omnipaque 300 Mg/ml) 75 ml 1X ONCE 02/12/20 16:15 02/12/20 16:16 DC Sodium Chloride 1,000 ml @ 1,000 mls/hr 1X ONCE 02/12/20 15:30 02/12/20 16:29 DC 02/12/20 16:12 1,000 MLS/HR (TEJA JOE DO) Allergies Allergies Allergies Coded Allergies Type Severity Reaction Last Updated Verified No Known Drug Allergies 08/25/18 No (TEJA JOE DO) Physical Exam Physical Exam Constitutional: Well developed, morbidly obese, well nourished, no acute distress, non-toxic appearance. [] HENT: Normocephalic, atraumatic, bilateral external ears normal, oropharynx moist, no oral exudates, nose normal. [] Eyes: PERRLA, EOMI, conjunctiva normal, no discharge. [] Neck: Normal range of motion, no tenderness, supple, no stridor. [] Cardiovascular: Heart rate regular rhythm, no murmur [] Lungs & Thorax: Bilateral breath sounds clear to auscultation [] Abdomen: Bowel sounds normal, soft, mild epigastric tenderness, no masses, no pulsatile masses. [] Skin: Warm, dry, no erythema, no rash. [] Back: No tenderness, no CVA tenderness. [] Extremities: No tenderness, no cyanosis, no clubbing, ROM intact, no edema. [] Neurologic: Alert and oriented X 3, normal motor function, normal sensory function, no focal deficits noted. [] Psychologic: Affect normal, judgement normal, mood normal. [] (TEJA JOE DO) Current Patient Data Vital Signs Vital Signs Date Time Temp Pulse Resp B/P (MAP) Pulse Ox O2 Delivery O2 Flow Rate FiO2 02/12/20 14:45 97.5 107 44 147/98 (114) 96 Room Air Lab Results Laboratory Tests Test 02/12/20 16:02 White Blood Count 10.8 x10^3/uL (4.0-11.0) Red Blood Count 4.94 x10^6/uL (4.30-5.70) Hemoglobin 15.0 g/dL (13.0-17.5) Hematocrit 44.5 % (39.0-53.0) Mean Corpuscular Volume 90 fL (79-100) Mean Corpuscular Hemoglobin 30 pg (25-35) Mean Corpuscular Hemoglobin Concent 34 g/dL (31-37) Red Cell Distribution Width 13.5 % (11.5-14.5) Platelet Count 309 x10^3/uL (140-400) Neutrophils (%) (Auto) 74 % (31-73) H Lymphocytes (%) (Auto) 13 % (24-48) L Monocytes (%) (Auto) 8 % (0-9) Eosinophils (%) (Auto) 5 % (0-3) H Basophils (%) (Auto) 1 % (0-3) Neutrophils # (Auto) 8.0 x10^3uL (1.8-7.7) H Lymphocytes # (Auto) 1.4 x10^3/uL (1.0-4.8) Monocytes # (Auto) 0.9 x10^3/uL (0.0-1.1) Eosinophils # (Auto) 0.5 x10^3/uL (0.0-0.7) Basophils # (Auto) 0.1 x10^3/uL (0.0-0.2) (TEJA JOE DO) EKG EKG [] (TEJA JOE DO) Radiology/Procedures Radiology/Procedures [] (TEJA JOE DO) Radiology/[place] [address] IMAGING REPORT Signed PATIENT: AMITA ROSARIO ACCOUNT: [id number] : 1955 LOCATION: ER AGE: 64 SEX: M EXAM STATUS: REG ER ORD. PHYSICIAN: TEJA JOE DO REASON: epigastric pain, bloating PROCEDURE: CT ABD PELV W/ IV CONTRST ONLY CT scan of the abdomen and pelvis with contrast 02/12/2020 CLINICAL HISTORY: Epigastric pain and bloating. TECHNIQUE: After the intravenous administration of 100 cc of Omnipaque 300 only, contiguous, 5 mm axial sections were obtained through the abdomen and pelvis. One or more of the following individualized dose reduction techniques were utilized for this study: 1. Automated exposure control. 2. Adjustment of the mA and/or kV according to patient size. 3. Use of iterative reconstruction technique. FINDINGS: Images through the lung bases demonstrate mild cardiomegaly. Minimal dependent subsegmental atelectasis is seen bilaterally. The liver parenchyma has a decreased attenuation consistent with fatty infiltration. Calcified granulomas are seen throughout the spleen and to lesser extent the liver. The pancreas, right adrenal gland and left kidney are within normal limits. A 5 mm rounded low-attenuation lesion is seen involving the lower pole of the right kidney. This likely represents a cyst. No further imaging workup is recommended. A 4.6 cm mass is seen involving the left adrenal gland which is heterogeneous and contains focal areas of fat. This is consistent with a myelolipoma. Atherosclerotic calcification of the abdominal aorta is seen. The abdominal aorta tapers normally. A calcified gallstone is seen within the gallbladder. No free fluid or free air is seen within the abdomen. There is no evidence of bowel obstruction. Air and stool are seen throughout the colon. The appendix is well-visualized and is within normal limits. Images through the pelvis demonstrate the urinary bladder with urine. The prostate gland is enlarged likely related to BPH. No free fluid is seen. Degenerative changes are seen involving the lower thoracic and throughout the lumbar spine along with both hips. IMPRESSION: No acute abnormality is seen. Electronically signed by: Morris Hdz MD (02/12/2020 6:30 PM) [id number] DICTATED AND SIGNED BY: MORRIS HDZ MD DATE: 02/12/20 183 CC: TEJA JOE DO; DEN CATALAN MD; STEPHANIE FERMIN MD ~ (DEN CATALAN MD) Course & Med Decision Making Course & Med Decision Making Pertinent Labs and Imaging studies reviewed. (See chart for details) The patient's labs are unremarkable. The CT of abdomen pelvis is pending. We had some problems with the lab which delayed CT scan. I am signing the patient out to Dr. Catalan at 1800 [] (TEJA JOE DO) Course & Med Decision Making See Dr. Jeo note for details. Advised patient to stay on a clear fluid diet 48 hours. No milk. No solids. Clear fluids only. Takes Zantac 150 mg twice a day. for gastritis. May take hydrocodone up 4 times a day. Avoid alcohol and caffeine. Patient return if no improvement. Re-exam. If no improvement Impression; 1. Abdomen pain 2. Suspect- gastritis and biliary colic (DEN CATALAN MD) Dragon Disclaimer Dragon Disclaimer This electronic medical record was generated, in whole or in part, using a voice recognition dictation system. (TEJA JOE DO) Departure Departure: Disposition: 01 HOME/RESIDENCE PRIOR TO ADM Condition: STABLE Referrals: STEPHANIE FERMIN MD (PCP) Scripts Oxycodone HCl/Acetaminophen (Percocet 5-325 mg Tablet) 1 Each Tablet 1 TAB PO PRN QID PRN for PAIN MDD 4 Tablet(s) for 30 Days, #30 TAB 0 Refills Prov: DEN CATALAN MD 02/12/20 Ondansetron Hcl (ZOFRAN) 8 Mg Tablet 8 MG PO QIDPRN PRN for Active nausea and vomiting, #30 BOTTLE Prov: DEN CATALAN MD 02/12/20 Ranitidine Hcl (ZANTAC) 150 Mg Tablet 150 MG PO BID for gastritis for 30 Days, #60 TAB Prov: DEN CATALAN MD 02/12/20 Dragon Disclaimer This chart was dictated in whole or in part using Voice Recognition software in a busy, high-work load, and often noisy Emergency Department environment. It may contain unintended and wholly unrecognized errors or omissions. (DEN CATALAN MD) Dragon Disclaimer This chart was dictated in whole or in part using Voice Recognition software in a busy, high-work load, and often noisy Emergency Department environment. It may contain unintended and wholly unrecognized errors or omissions. (DEN CATALAN MD) TEJA JOE DO Feb 12, 2020 17:49 DEN CATALAN MD Feb 12, 2020 18:40
--- NOTE | 2020-02-12 18:33 | RAD ---
CT scan of the abdomen and pelvis with contrast 02/12/2020 CLINICAL HISTORY: Epigastric pain and bloating. TECHNIQUE: After the intravenous administration of 100 cc of Omnipaque 300 only, contiguous, 5 mm axial sections were obtained through the abdomen and pelvis. One or more of the following individualized dose reduction techniques were utilized for this study: 1. Automated exposure control. 2. Adjustment of the mA and/or kV according to patient size. 3. Use of iterative reconstruction technique. FINDINGS: Images through the lung bases demonstrate mild cardiomegaly. Minimal dependent subsegmental atelectasis is seen bilaterally. The liver parenchyma has a decreased attenuation consistent with fatty infiltration. Calcified granulomas are seen throughout the spleen and to lesser extent the liver. The pancreas, right adrenal gland and left kidney are within normal limits. A 5 mm rounded low-attenuation lesion is seen involving the lower pole of the right kidney. This likely represents a cyst. No further imaging workup is recommended. A 4.6 cm mass is seen involving the left adrenal gland which is heterogeneous and contains focal areas of fat. This is consistent with a myelolipoma. Atherosclerotic calcification of the abdominal aorta is seen. The abdominal aorta tapers normally. A calcified gallstone is seen within the gallbladder. No free fluid or free air is seen within the abdomen. There is no evidence of bowel obstruction. Air and stool are seen throughout the colon. The appendix is well-visualized and is within normal limits. Images through the pelvis demonstrate the urinary bladder with urine. The prostate gland is enlarged likely related to BPH. No free fluid is seen. Degenerative changes are seen involving the lower thoracic and throughout the lumbar spine along with both hips. IMPRESSION: No acute abnormality is seen. Electronically signed by: Morris Hdz MD (02/12/2020 6:30 PM) [id number]
[2020-02-12] MEDS ORDERED: ONDA8TAB9 PO (18:38)
[2020-02-12] MEDS ORDERED: RANI-376 PO (18:38)
[2020-02-12] MEDS ORDERED: OXYC-325 PO (18:38)
== END 2020-02-12 18:40 | disposition home or self-care (01) ==
LOC: ER 14:43
DX: R10.33 Periumbilical pain (principal); I50.9 Heart failure, unspecified; J44.9 Chronic obstructive pulmonary disease, unspecified; K21.9 Gastro-esophageal reflux disease without esophagitis; Z87.891 Personal history of nicotine dependence
CPT/HCPCS: 36415; 74177; 80053; 83690; 85025; 99285; Q9967; J7030

== ENCOUNTER 2020-04-10 13:42 | Inpatient (IN) | payer BC ==
[~2020-04-10] VITALS: Ht 165.1 cm; Wt 108.9 kg
[~2020-04-10 13:42] MED LIST changes: +ONDA8TAB9 PO; +OXYC-325 PO; +RANI-376 PO
[2020-04-10 14:16] LABS: BASO # 0.1 x10^3/uL (0.0-0.2); BASO % 1 % (0-3); EOS # 0.5 x10^3/uL (0.0-0.7); EOS % 5 % (0-3); HEMATOCRIT 44.9 % (39.0-53.0); HEMOGLOBIN 14.9 g/dL (13.0-17.5); LYMPH # 1.5 x10^3/uL (1.0-4.8); LYMPH % 15 % (24-48); MEAN CORPUSCULAR HEMOGLOBIN 30 pg (25-35); MEAN CORPUSCULAR HGB CONC 33 g/dL (31-37); MEAN CORPUSCULAR VOLUME 91 fL (79-100); MONO # 0.7 x10^3/uL (0.0-1.1); MONO % 7 % (0-9); NEUT # 7.4 x10^3uL (1.8-7.7); NEUT % 74 % (31-73); PLATELET COUNT 279 x10^3/uL (140-400); RED BLOOD COUNT 4.93 x10^6/uL (4.30-5.70); RED CELL DISTRIBUTION WIDTH 13.9 % (11.5-14.5); WHITE BLOOD COUNT 10.1 x10^3/uL (4.0-11.0)
--- NOTE | 2020-04-10 14:20 | PHYS DOC ---
Past History Past Medical History: CHF, COPD, Hypertension Past Surgical History: No Surgical History Smoking: Quit Less Than 1 Year Alcohol Use: None Drug Use: None General Adult EDM: Chief Complaint: SHORTNESS OF BREATH HPI: HPI: 64-year-old male presents with report of worsening shortness of air x2 days. Patient reports he feels like he is "bloated "and retaining water. Patient does report history of CHF as well as COPD. Patient reports dyspnea worse with exertion and with orthopnea. Denies fever/chills. Denies cough. Patient reports he has been taking his diuretic medication as prescribed but was supposed to follow with Dr. Dowd (cardiology) few months ago but his appoint ment was canceled secondary to the COVID pandemic. Denies trauma. Denies known exposure to COVID-19. Review of Systems: Review of Systems: Constitutional: Denies fever or chills Eyes: Denies redness or eye pain HENT: Denies nasal congestion or sore throat Respiratory: Denies cough; reports shortness of breath, orthopnea, and dyspnea with exertion Cardiovascular: Reports chest "tightness"; denies chest pain or palpitations GI: Denies abdominal pain, nausea, or vomiting : Denies dysuria or hematuria Musculoskeletal: Denies back pain or joint pain Integument: Denies rash or skin lesions Neurologic: Denies headache, focal weakness or sensory changes Complete systems were reviewed and found to be within normal limits, except as documented in this note. Heart Score: HEART Score for Chest Pain: HEART Score for Chest Pain Response (Comments) Value History Moderately Suspicious 1 ECG Normal 0 Age >45 - < 65 1 Troponin >3 x Normal Limit 2 Total 4 Risk Factors: Risk Factors: DM, Current or recent (<one month) smoker, HTN, HLP, family history of CAD, obesity. Risk Scores: Score 0 - 3: 2.5% MACE over next 6 weeks - Discharge Home Score 4 - 6: 20.3% MACE over next 6 weeks - Admit for Clinical Observation Score 7 - 10: 72.7% MACE over next 6 weeks - Early Invasive Strategies Allergies: Allergies: Allergies Coded Allergies Type Severity Reaction Last Updated Verified No Known Drug Allergies 08/25/18 No Physical Exam: PE: Constitutional: Well developed, well nourished, no acute distress, non-toxic appearance HENT: Normocephalic, atraumatic, oropharynx moist Eyes: Conjunctiva normal, no discharge Neck: Normal range of motion, no tenderness, supple Cardiovascular: Heart rate tachycardic, regular rhythm Lungs & Thorax: Bilateral breath sounds diminished at bases, no wheezing, no respiratory distress Abdomen: Soft, no tenderness, obese Skin: Warm, dry, no erythema, no rash Extremities: No tenderness, ROM intact, trace bilateral lower extremity edema Neurologic: Alert and oriented X 3, no focal deficits noted Psychologic: Affect anxious, judgment normal Current Patient Data: Vital Signs: Vital Signs Date Time Temp Pulse Resp B/P (MAP) Pulse Ox O2 Delivery O2 Flow Rate FiO2 04/10/20 14:00 98.1 100 24 161/115 (130) 95 Room Air EKG: EKG: @1403 Sinus tachycardia at 101bpm, NO ST elevation, frequent PVCs, QRS 112ms, QT /QTc 370/487ms Radiology/Procedures: Radiology/Procedures: PROCEDURE: PORTABLE CHEST 1V PORTABLE CHEST 1V Clinical indications: Dyspnea. COMPARISON: June 05, 2019. Findings: Chronic interstitial lung disease is seen bilaterally. Chronic cephalization of pulmonary flow is seen. There is a calcified granuloma of the right lower lung zone which is stable. Heart size is mildly prominent but stable. The mediastinum and both nicole are stable. IMPRESSION: Chronic interstitial lung disease. No new lung infiltrate is evident. Mild cardiomegaly. Electronically signed by: Yusuf Neff MD (04/10/2020 2:20 PM) [id number] Course & Med Decision Making: Course & Med Decision Making Pertinent Labs and Imaging studies reviewed. (See chart for details) Patient presents with report of worsening dyspnea with exertion and orthopnea x2 days. Patient does have a history of CHF. Denies trauma. Reports a sensation of feeling bloated. Sats stable upon arrival on room air. No respiratory distress appreciated. EKG stable. Labs obtained and posted to chart. Troponin elevated however upon [employer] review patient noted to have slightly lesser elevation in May 2019. BMP only 700. Chest x-ray appears more chronic than acute. Concern given patient's symptoms for CHF exacerbation. Discussed case with Aleksandra FRAME TENDER with Dr. Dowd (cardiology) who is in agreement with consultation and recommends patient can be admitted at [facility]. Patient requiring admission for further evaluation and treatment. Discussed with Dr. Dwyer (hospitalist) who is in agreement with admission. Discussed findings and plan with patient, who acknowledges understanding and agreement. Dragon Disclaimer: Dragon Disclaimer: This electronic medical record was generated, in whole or in part, using a voice recognition dictation system. Departure Departure: Impression: Primary Impression: Dyspnea Qualified Codes: R06.00 - Dyspnea, unspecified Additional Impressions: Elevated troponin CHF (congestive heart failure) Qualified Codes: I50.9 - Heart failure, unspecified Disposition: ADMITTED INPATIENT Admitting Physician: Xenia Dwyer Condition: GUARDED Referrals: STEPHANIE FERIMN MD (PCP) Critical Care Time Critical care time was 30 minutes which includes time at bedside, spent in discussion of patient's care with specialists and/or family members, with interpretation of laboratory and/or radiological studies and is exclusive of procedures. LONNY MCCOLLUM DO April 10, 2020 14:20
--- NOTE | 2020-04-10 14:23 | RAD ---
PORTABLE CHEST 1V Clinical indications: Dyspnea. COMPARISON: June 05, 2019. Findings: Chronic interstitial lung disease is seen bilaterally. Chronic cephalization of pulmonary flow is seen. There is a calcified granuloma of the right lower lung zone which is stable. Heart size is mildly prominent but stable. The mediastinum and both nicole are stable. IMPRESSION: Chronic interstitial lung disease. No new lung infiltrate is evident. Mild cardiomegaly. Electronically signed by: Yusuf Neff MD (04/10/2020 2:20 PM) [id number]
[2020-04-10 14:36] LABS: CALCIUM 9.1 mg/dL (8.5-10.1); CREATININE 0.9 mg/dL (0.7-1.3); GFR 85.5; POTASSIUM 4.7 mmol/L (3.5-5.1)
[2020-04-10 14:51] LABS: ALBUMIN 3.8 g/dL (3.4-5.0); MAGNESIUM 2.2 mg/dL (1.8-2.4); TOTAL BILIRUBIN 0.3 mg/dL (0.2-1.0); TOTAL PROTEIN 7.5 g/dL (6.4-8.2)
[2020-04-10] MEDS ORDERED: ASPIRIN 325 MG TABLET PO ONE (15:00)
[2020-04-10] MEDS ORDERED: FUROSEMIDE 40 MG/4 ML VIAL IVP ONE (15:30)
[2020-04-10] MEDS ORDERED: ONDANSETRON PF 4 MG/2 ML VIAL. IVP PRN (15:30)
--- NOTE | 2020-04-10 15:44 | EKG ---
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
[2020-04-10 18:32] VITALS: BP 145/98
[2020-04-10 23:01] VITALS: BP 142/94
[2020-04-11] MEDS: FAMOTIDINE 20 MG TABLET PO SCH ×3 (01:27→10:40)
[2020-04-11 05:35] VITALS: BP 123/81
[2020-04-11 06:10] LABS: BASO # 0.1 x10^3/uL (0.0-0.2); BASO % 1 % (0-3); EOS # 0.5 x10^3/uL (0.0-0.7); EOS % 5 % (0-3); HEMATOCRIT 44.7 % (39.0-53.0); HEMOGLOBIN 14.9 g/dL (13.0-17.5); LYMPH # 1.8 x10^3/uL (1.0-4.8); LYMPH % 19 % (24-48); MEAN CORPUSCULAR HEMOGLOBIN 30 pg (25-35); MEAN CORPUSCULAR HGB CONC 33 g/dL (31-37); MEAN CORPUSCULAR VOLUME 91 fL (79-100); MONO # 0.9 x10^3/uL (0.0-1.1); MONO % 9 % (0-9); NEUT # 6.7 x10^3uL (1.8-7.7); NEUT % 67 % (31-73); PLATELET COUNT 257 x10^3/uL (140-400); RED CELL DISTRIBUTION WIDTH 14.1 % (11.5-14.5)
[2020-04-11 06:19] LABS: ALBUMIN 3.4 g/dL (3.4-5.0); ALBUMIN/GLOBULIN RATIO 0.9 (1.0-1.7); CALCIUM 8.8 mg/dL (8.5-10.1); CREATININE 0.9 mg/dL (0.7-1.3); GFR 85.5; TOTAL BILIRUBIN 0.5 mg/dL (0.2-1.0); TOTAL PROTEIN 7.4 g/dL (6.4-8.2)
--- NOTE | 2020-04-11 08:39 | PDOC2 ---
CARDIAC CONSULT DATE OF CONSULT Date Of Consult DATE: 04/11/20 TIME: 08:36 REASON FOR CONSULT Reason for Consult CHF Elevated troponin REFERRING PHYSICIAN Referring Physician Dr. Glover SOURCE Source: Chart review, Patient HPI History of Present Illness This is a 64 yo male, with a history of NICM, who presented secondary to abdomi nal pain, feeling "bloated" and shortness of breath. Reports pain began about 2 weeks ago. Seemed to go away, but has returned in the last couple of days. Has has more belching. Has had routine bowel movements. No dizziness, diaphoresis, palpitations, or chest pain. 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 Reports compliance with medications including diuretic therapy. Does report poor diet at home. PAST MEDICAL HISTORY Cardiovascular: CHF, HTN Pulmonary: COPD PAST SURGICAL HISTORY Past Surgical History: No pertinent history FAMILY HISTORY Family History: Hypertension SOCIAL HISTORY Social History Smoke: Quit (09/2018) ALCOHOL: none Drugs: None Lives: with young children CURRENT MEDICATIONS Current Medications Current Medications Aspirin (Farrukh Aspirin) 325 mg 1X ONCE PO Last administered on 04/10/20at 15:15; Start 04/10/20 at 15:00; Stop 04/10/20 at 15:01; Status DC Furosemide (Lasix) 40 mg 1X ONCE IVP Last administered on 04/10/20at 15:24; Start 04/10/20 at 15:30; Stop 04/10/20 at 15:31; Status DC Ondansetron HCl (Zofran) 4 mg PRN Q4HRS PRN IVP NAUSEA/VOMITING; Start 04/10/20 at 15:30; Stop 04/11/20 at 15:29 Famotidine (Pepcid) 20 mg BID PO Last administered on 04/11/20at 07:55; Start 04/11/20 at 01:30 Fentanyl Citrate (Fentanyl 2ml Vial) 50 mcg PRN Q3HRS PRN IV SEVERE PAIN 7-10 Last administered on 04/11/20at 05:53; Start 04/11/20 at 05:45 Active Scripts Active Percocet 5-325 mg Tablet (Oxycodone HCl/Acetaminophen) 1 Each Tablet 1 Tab PO PRN QID PRN MDD 4 Tablet(s) 30 Days Zofran (Ondansetron Hcl) 8 Mg Tablet 8 Mg PO QIDPRN PRN Zantac (Ranitidine Hcl) 150 Mg Tablet 150 Mg PO BID 30 Days Proair Hfa Inhaler (Albuterol Sulfate) 8.5 Gm Hfa.aer.ad 2 Puff INH PRN Q6HRS PRN ALLERGIES Allergies: Coded Allergies: No Known Drug Allergies (Unverified , 08/25/18) ROS Review of Systems 14 point ROS conducted with pertinent positives noted above in HPI. PHYSICAL EXAM Physical Exam General: Alert, Oriented X3, Cooperative, No acute distress HEENT: Atraumatic, Mucous membr. moist/pink Lungs: Other (diminished) Heart: Regular rate, Normal S1, Normal S2 Abdomen: central upper abdominal tenderness Extremities: No edema Skin: No significant lesion Neuro: Normal speech, Sensation intact Psych/Mental Status: Mental status NL, Mood NL MUSCULOSKELETAL: Osteoarthritic changes both hands VITALS Vital Signs Vital Signs Date Time Temp Pulse Resp B/P (MAP) Pulse Ox O2 Delivery O2 Flow Rate FiO2 04/11/20 06:27 18 Room Air 04/11/20 05:35 97.5 85 123/81 (95) 97 LABS LABS Laboratory Tests Test 04/10/20 13:50 04/10/20 16:35 04/10/20 19:00 04/10/20 22:10 White Blood Count 10.1 x10^3/uL (4.0-11.0) Red Blood Count 4.93 x10^6/uL (4.30-5.70) Hemoglobin 14.9 g/dL (13.0-17.5) Hematocrit 44.9 % (39.0-53.0) Mean Corpuscular Volume 91 fL (79-100) Mean Corpuscular Hemoglobin 30 pg (25-35) Mean Corpuscular Hemoglobin Concent 33 g/dL (31-37) Red Cell Distribution Width 13.9 % (11.5-14.5) Platelet Count 279 x10^3/uL (140-400) Neutrophils (%) (Auto) 74 % (31-73) Lymphocytes (%) (Auto) 15 % (24-48) Monocytes (%) (Auto) 7 % (0-9) Eosinophils (%) (Auto) 5 % (0-3) Basophils (%) (Auto) 1 % (0-3) Neutrophils # (Auto) 7.4 x10^3uL (1.8-7.7) Lymphocytes # (Auto) 1.5 x10^3/uL (1.0-4.8) Monocytes # (Auto) 0.7 x10^3/uL (0.0-1.1) Eosinophils # (Auto) 0.5 x10^3/uL (0.0-0.7) Basophils # (Auto) 0.1 x10^3/uL (0.0-0.2) Prothrombin Time 9.6 SEC (9.4-11.4) Prothromb Time International Ratio 0.9 (0.9-1.1) Activated Partial Thromboplast Time 27 SEC (23-33) Sodium Level 138 mmol/L (136-145) Potassium Level 4.7 mmol/L (3.5-5.1) Chloride Level 101 mmol/L (98-107) Carbon Dioxide Level 29 mmol/L (21-32) Anion Gap 8 (6-14) Blood Urea Nitrogen 20 mg/dL (8-26) Creatinine 0.9 mg/dL (0.7-1.3) Estimated GFR (Cockcroft-Gault) 85.5 BUN/Creatinine Ratio 22 (6-20) Glucose Level 137 mg/dL (70-99) Calcium Level 9.1 mg/dL (8.5-10.1) Magnesium Level 2.2 mg/dL (1.8-2.4) Total Bilirubin 0.3 mg/dL (0.2-1.0) Aspartate Amino Transf (AST/SGOT) 22 U/L (15-37) Alanine Aminotransferase (ALT/SGPT) 35 U/L (16-63) Alkaline Phosphatase 92 U/L (46-116) Creatine Kinase 97 U/L (39-308) Creatine Kinase MB (Mass) 2.4 ng/mL (0.0-3.6) Creatine Kinase MB Relative Index 2.5 % (0-4) Troponin I Quantitative 0.215 ng/mL (0-0.055) 0.212 ng/mL (0-0.055) 0.206 ng/mL (0-0.055) IS-Cbv-V-Type Natriuretic Peptide 689 pg/mL (0-124) Total Protein 7.5 g/dL (6.4-8.2) Albumin 3.8 g/dL (3.4-5.0) Albumin/Globulin Ratio 1.0 (1.0-1.7) Lactic Acid Level 1.5 mmol/L (0.4-2.0) Test 04/11/20 05:52 White Blood Count 10.0 x10^3/uL (4.0-11.0) Red Blood Count 4.90 x10^6/uL (4.30-5.70) Hemoglobin 14.9 g/dL (13.0-17.5) Hematocrit 44.7 % (39.0-53.0) Mean Corpuscular Volume 91 fL (79-100) Mean Corpuscular Hemoglobin 30 pg (25-35) Mean Corpuscular Hemoglobin Concent 33 g/dL (31-37) Red Cell Distribution Width 14.1 % (11.5-14.5) Platelet Count 257 x10^3/uL (140-400) Neutrophils (%) (Auto) 67 % (31-73) Lymphocytes (%) (Auto) 19 % (24-48) Monocytes (%) (Auto) 9 % (0-9) Eosinophils (%) (Auto) 5 % (0-3) Basophils (%) (Auto) 1 % (0-3) Neutrophils # (Auto) 6.7 x10^3uL (1.8-7.7) Lymphocytes # (Auto) 1.8 x10^3/uL (1.0-4.8) Monocytes # (Auto) 0.9 x10^3/uL (0.0-1.1) Eosinophils # (Auto) 0.5 x10^3/uL (0.0-0.7) Basophils # (Auto) 0.1 x10^3/uL (0.0-0.2) Sodium Level 135 mmol/L (136-145) Potassium Level 4.0 mmol/L (3.5-5.1) Chloride Level 99 mmol/L (98-107) Carbon Dioxide Level 27 mmol/L (21-32) Anion Gap 9 (6-14) Blood Urea Nitrogen 20 mg/dL (8-26) Creatinine 0.9 mg/dL (0.7-1.3) Estimated GFR (Cockcroft-Gault) 85.5 BUN/Creatinine Ratio 22 (6-20) Glucose Level 106 mg/dL (70-99) Calcium Level 8.8 mg/dL (8.5-10.1) Total Bilirubin 0.5 mg/dL (0.2-1.0) Aspartate Amino Transf (AST/SGOT) 18 U/L (15-37) Alanine Aminotransferase (ALT/SGPT) 30 U/L (16-63) Alkaline Phosphatase 79 U/L (46-116) Lactate Dehydrogenase 170 U/L (85-227) Total Protein 7.4 g/dL (6.4-8.2) Albumin 3.4 g/dL (3.4-5.0) Albumin/Globulin Ratio 0.9 (1.0-1.7) Lipase 170 U/L (73-393) ECHOCARDIOGRAM Echocardiogram <Conclusion> The Left Ventricle is mild to moderately dilated. The systolic function is moderately impaired. The Ejection Fraction is estimated at 35%. There is global hypokinesis of the left ventricle. There is borderline to mild concentric left ventricular hypertrophy. There is no significant aortic valvular stenosis. Doppler and Color Flow revealed no significant aortic regurgitation. Doppler and Color-flow revealed trace to mild mitral regurgitation. Doppler and Color Flow revealed trace tricuspid valve regurgitation. DATE: 09/20/18 0936 <Conclusion> Left ventricle systolic function is severely impaired. The Ejection Fraction is 20-25%. There is severe global hypokinesis of the left ventricle. DATE: 01/16/20 1204 HEART CATH Heart Cath CORONARY ANGIOGRAPHY: LM is a large caliber vessel with normal angiographic appearance. LAD is a large caliber vessel with a distal 20% stenosis. Ramus is a moderate caliber vessel with normal angiographic apeparance. LCx is a moderate caliber non-dominant vessel with normal angiographic appearance. OM1 is a moderate caliber vessel with normal angiographic appearance. RCA is a large caliber dominant vessel with normal angiographic appearance. RPDA and RPL are moderate caliber vessels with normal angiographic appearance. Conclusion 1. Elevated left ventricular filling pressures (LVEDP 28 mm Hg), consistent with acute on chronic systolic and diastolic HF 2. Severe LV dysfunction. EF 30% 3. No significant coronary artery disease. Recommendations Aggressive Medical Therapy DATE: 09/20/18 1540 ASSESSMENT/PLAN Assessment/Plan 1. Abdominal pain; US pending 2. Dyspnea; with acute on chronic systolic CHF 3. NICM; LVEF 20-25% per recent echo 4. Mild troponin elevation; peak 0.215. Most probably type II, demand ischemia. CP free. Cath 09/2018 without obstructive disease as noted above 5. Hypertension; controlled Recommendations Diuresis with monitoring of labs 2Gm Na diet, 2000cc FR Resume HF optimization with coreg and lisinopril. Consider Entresto on an outpatient basis, would need to apply for assistance program. Supportive care client services manager consult KARLEE PRITCHETT APRN April 11, 2020 08:39
[2020-04-11] MEDS ORDERED: LISI-338 PO (09:13)
[2020-04-11] MEDS ORDERED: CARV3.1230 PO (09:13)
[2020-04-11] MEDS ORDERED: POTA10TA5 PO (09:16)
[2020-04-11] MEDS ORDERED: ALBU2.5V8 IH (09:16)
[2020-04-11] MEDS ORDERED: FURO80TA3 PO (09:16)
--- NOTE | 2020-04-11 09:27 | RAD ---
Examination: Ultrasound abdomen complete HISTORY: History of abdominal pain COMPARISON: None available FINDINGS: The liver length measures 17 cm. There is increased echogenicity identified in the liver likely hepatic steatosis. The gallbladder wall thickness measures 2.8 mm. A 2.1 cm echogenicity identified in the gallbladder likely gallstone. The right kidney measures 9.4 x 5.7 x 5.3 cm. The left kidney measures 9.2 x 5.7 x 5.3 cm. The spleen measures 10 cm in length. The pancreas, aorta, IVC are poorly visualized. The common bile duct is not well-visualized. IMPRESSION: 1. Cholelithiasis. 2. Hepatic steatosis. Electronically signed by: Alphonso San MD (04/11/2020 9:24 AM) [id number]
[2020-04-11] MEDS ORDERED: FUROSEMIDE 40 MG/4 ML VIAL IVP ONE ×2 (09:30→15:00)
[2020-04-11] MEDS ORDERED: LISINOPRIL 5 MG TABLET. PO SCH (09:30)
[2020-04-11] MEDS: ASPIRIN ENTERIC COATED 81 MG TABLET.DR. PO SCH (09:30)
[2020-04-11] MEDS ORDERED: POTASSIUM CHLORIDE 20 MEQ TABLET.ER. PO ONE (09:30)
[2020-04-11] MEDS ORDERED: IOHEXOL 240 MG/ML 50ML VIAL. ONE (10:05)
[2020-04-11] MEDS ORDERED: IOHEXOL 300 MG/ML 75 ML VIAL. IV ONE (10:45)
--- NOTE | 2020-04-11 10:53 | HP ---
ADMIT DATE: 04/10/2020 ATTENDING PHYSICIAN: Dr. Mena. CHIEF COMPLAINT: Shortness of breath. HISTORY OF PRESENT ILLNESS: The patient is a 64-year-old gentleman with worsening shortness of breath for the last 2 days. He feels bloated, retaining water. He has had some nonspecific epigastric discomfort and pain. He was constipated earlier. He says the dyspnea is worse with exertion, and he has significant orthopnea to the point he cannot sleep lying down. He has been sleeping in a chair. No recent fevers or chills. He has been taking his diuretic. He follows up with Dr. Dowd with Cardiology, but the last appointment was canceled due to the COVID pandemic. He denies any recent trauma, chest pain, palpitations or known exposure to COVID-19 coronavirus and no fevers. PAST MEDICAL HISTORY: Significant for COPD. He just quit smoking a year ago. He may be still smoking intermittently. He has a longstanding history of congestive heart failure due to nonischemic cardiomyopathy. His last catheterization was 2 years ago. He has essential hypertension, COPD and questionable compliance of meds. FAMILY HISTORY: Noncontributory. ALLERGIES: He has no known drug allergies. CURRENT MEDICINES: Include albuterol, Coreg 3.125 mg daily, lisinopril 5 mg daily, oxycodone, potassium, Lasix, and Zantac. SOCIAL HISTORY: He was a smoker. 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 The patient is from his second . Unfortunately, he has 2 young kids at home, a 12-year-old daughter and a 6-year-old son, for whom he is the primary parent. The mother is out of the picture. He denied any recent travel. REVIEW OF SYSTEMS: Significant for the symptoms that brought him in. No fevers or chills. He has felt bloated and constipated. Weight has gone up. He said he gained at least 50 pounds as he quit smoking a year ago. He denied any palpitations. No bloody stools. All other systems were reviewed and turned to be noncontributory. PHYSICAL EXAMINATION: GENERAL: When I saw him, this is a pleasant gentleman who appears slightly uncomfortable. INITIAL VITAL SIGNS: In the ED showed a blood pressure of 142/94, pulse is 80 and regular. He was afebrile. Room air saturation 97%. HEENT: Head is without trauma. Pupils are reactive. Sclerae nonicteric. Oropharynx clear. NECK: Supple, no bruits. LUNGS: Coarse rhonchi and rales at the bases. CARDIOVASCULAR: Showed distant heart tones. No gallops. ABDOMEN: Obese, protuberant. Minimal guarding on palpation. No rebound tenderness. Bowel sounds are hypoactive. EXTREMITIES: Showed trace edema. NEUROLOGIC: Focally intact. Speech is fluent. IMAGING STUDIES: The chest x-ray showed cardiomegaly with vascular congestion, some atelectasis identified. Preliminary ultrasound showed cholelithiasis poor visualization of the bile duct and no obstructive pattern. He also had hepatic steatosis. LABORATORY STUDIES: Hemoglobin is maintained at 14.9 g/dL with a white count of 10,100. Chemistry panel: Transaminases are not elevated. Cardiac enzymes slightly elevated. I discussed the case with Cardiology. These are due to his chronicity and his stress from cardiomyopathy. ASSESSMENT: 1. A 64-year-old gentleman with nonischemic cardiomyopathy. He has acute on chronic congestive heart failure, systolic in nature. 2. Chronic obstructive pulmonary disease, advanced, with symptomatic dyspnea. 3. Morbid obesity. 4. Nonalcoholic steatohepatitis. 5. Cholelithiasis. 6. Nonspecific abdominal pain. 7. Essential hypertension. 8. Hyperlipidemia. PLAN: 1. Increase afterload reduction. I will increase his JOHNATHAN inhibitor. 2. Increase preload reduction with extra doses of diuretics. 3. CT of the abdomen. 4. Diet as tolerated. 5. Cardiology consultation. They are familiar with his case. 6. Daily weights with fluid restriction. FRANCK MENA MD DR: CHRISTIANNE/delia JOB#: [id number] / [id number] RO Rudd MD
[2020-04-11 11:08] VITALS: BP 121/74
--- NOTE | 2020-04-11 11:35 | RAD ---
Examination: CT ABD PELV W/ORAL IV CONTRAST History: Reason: New Abdominal pain, concern for obstruction / Spl. Instructions: drinking [id number] / History: Comparison/Correlation: 02/12/2020 CT abdomen and pelvis with contrast, 02/10/2020 abdominal ultrasound exam Findings: Axial images of the abdomen and pelvis were obtained following IV and oral contrast. Sagittal and coronal reformatted images were provided. Motion limits evaluation at the mid abdominal level. Calcified granulomas present within the right lower lobe of the lower lung field along the posterior margin of the major fissure. Liver is unremarkable. Calcified granulomas involving the spleen. Pancreas is unremarkable. 1.9 cm diameter calculus is present within the gallbladder. Right adrenal gland is normal. At the medial right renal lower pole level, a very small to characterize lesion seen on previous exam is not as well delineated due to motion. No significant change suspected. Left adrenal gland 4 cm x 2.6 cm mass with fat attenuation components and calcification is seen and appears similar upon correlation with previous CT of the chest dated 09/18/2018. This is compatible with a myelolipoma. Contrast noted throughout the small bowel and to a minimal extent at the cecum. No extraluminal gas. No enlarged abdominal or pelvic lymph nodes. No ascites or pelvic free fluid. No obstruction. Appendix is normal. No inflammatory changes identified about the bowel. No ascites or pelvic free fluid. Urinary bladder is unremarkable. Prostatomegaly is again noted. Multilevel degenerative space narrowing of the upper lumbar spine noted. Moderate disc space narrowing at L3-4, L4-5, L5-C7. Vacuum phenomenon noted within the lumbar spine. Concentric disc bulge is notable at L3-4, L4-5, and L5-6 with spinal canal narrowing at these levels. Impression: No bowel obstruction or inflammatory finding. Cholelithiasis. Prostatomegaly. Left adrenal myelolipoma is stable. PQRS Compliance Statement: One or more of the following individualized dose reduction techniques were utilized for this examination: 1. Automated exposure control 2. Adjustment of the mA and/or kV according to patient size 3. Use of iterative reconstruction technique Electronically signed by: Amos Camacho MD (04/11/2020 11:32 AM) [id number]
[2020-04-11 15:41] VITALS: BP 115/70
[2020-04-11] MEDS: CARVEDILOL 3.125 MG TABLET PO SCH (17:08)
[2020-04-11 19:20] VITALS: BP 124/74
[2020-04-11] MEDS: LISINOPRIL 10 MG TABLET PO SCH (20:43)
[2020-04-11 23:45] VITALS: BP 127/88
[2020-04-12 06:00] VITALS: BP 101/62
[2020-04-12 07:41] VITALS: BP 101/62
[2020-04-12] MEDS: ASPIRIN ENTERIC COATED 81 MG TABLET.DR. PO SCH (07:41)
[2020-04-12] MEDS: FAMOTIDINE 20 MG TABLET PO SCH (07:41)
[2020-04-12] MEDS: LISINOPRIL 10 MG TABLET PO SCH (07:41)
[2020-04-12] MEDS: CARVEDILOL 3.125 MG TABLET PO SCH (07:41)
--- NOTE | 2020-04-12 08:24 | PDOC ---
CARDIO Progress Notes Date & Time Date of Service DATE: 04/12/20 TIME: 08:22 Time of Evaluation 08:22 Subjective Notes Feeling much better this am. SOA and abdominal pain improved. Vitals Vitals Vital Signs Date Time Temp Pulse Resp B/P (MAP) Pulse Ox O2 Delivery O2 Flow Rate FiO2 04/12/20 07:41 71 101/62 04/12/20 06:00 97.7 20 95 Room Air Weight Weight [ ] Input and Output I.O. Intake and Output 04/12/20 07:00 Intake Total 1730 ml Output Total 3100 ml Balance -1370 ml Intake Oral 1730 ml Output Urine Total 3100 ml Laboratory Labs Laboratory Tests Test 04/10/20 13:50 04/10/20 16:35 04/10/20 19:00 04/10/20 22:10 White Blood Count 10.1 x10^3/uL (4.0-11.0) Red Blood Count 4.93 x10^6/uL (4.30-5.70) Hemoglobin 14.9 g/dL (13.0-17.5) Hematocrit 44.9 % (39.0-53.0) Mean Corpuscular Volume 91 fL (79-100) Mean Corpuscular Hemoglobin 30 pg (25-35) Mean Corpuscular Hemoglobin Concent 33 g/dL (31-37) Red Cell Distribution Width 13.9 % (11.5-14.5) Platelet Count 279 x10^3/uL (140-400) Neutrophils (%) (Auto) 74 % (31-73) Lymphocytes (%) (Auto) 15 % (24-48) Monocytes (%) (Auto) 7 % (0-9) Eosinophils (%) (Auto) 5 % (0-3) Basophils (%) (Auto) 1 % (0-3) Neutrophils # (Auto) 7.4 x10^3uL (1.8-7.7) Lymphocytes # (Auto) 1.5 x10^3/uL (1.0-4.8) Monocytes # (Auto) 0.7 x10^3/uL (0.0-1.1) Eosinophils # (Auto) 0.5 x10^3/uL (0.0-0.7) Basophils # (Auto) 0.1 x10^3/uL (0.0-0.2) Prothrombin Time 9.6 SEC (9.4-11.4) Prothromb Time International Ratio 0.9 (0.9-1.1) Activated Partial Thromboplast Time 27 SEC (23-33) Sodium Level 138 mmol/L (136-145) Potassium Level 4.7 mmol/L (3.5-5.1) Chloride Level 101 mmol/L (98-107) Carbon Dioxide Level 29 mmol/L (21-32) Anion Gap 8 (6-14) Blood Urea Nitrogen 20 mg/dL (8-26) Creatinine 0.9 mg/dL (0.7-1.3) Estimated GFR (Cockcroft-Gault) 85.5 BUN/Creatinine Ratio 22 (6-20) Glucose Level 137 mg/dL (70-99) Calcium Level 9.1 mg/dL (8.5-10.1) Magnesium Level 2.2 mg/dL (1.8-2.4) Total Bilirubin 0.3 mg/dL (0.2-1.0) Aspartate Amino Transf (AST/SGOT) 22 U/L (15-37) Alanine Aminotransferase (ALT/SGPT) 35 U/L (16-63) Alkaline Phosphatase 92 U/L (46-116) Creatine Kinase 97 U/L (39-308) Creatine Kinase MB (Mass) 2.4 ng/mL (0.0-3.6) Creatine Kinase MB Relative Index 2.5 % (0-4) Troponin I Quantitative 0.215 ng/mL (0-0.055) 0.212 ng/mL (0-0.055) 0.206 ng/mL (0-0.055) FY-Ngk-M-Type Natriuretic Peptide 689 pg/mL (0-124) Total Protein 7.5 g/dL (6.4-8.2) Albumin 3.8 g/dL (3.4-5.0) Albumin/Globulin Ratio 1.0 (1.0-1.7) Lactic Acid Level 1.5 mmol/L (0.4-2.0) Test 04/11/20 05:52 White Blood Count 10.0 x10^3/uL (4.0-11.0) Red Blood Count 4.90 x10^6/uL (4.30-5.70) Hemoglobin 14.9 g/dL (13.0-17.5) Hematocrit 44.7 % (39.0-53.0) Mean Corpuscular Volume 91 fL (79-100) Mean Corpuscular Hemoglobin 30 pg (25-35) Mean Corpuscular Hemoglobin Concent 33 g/dL (31-37) Red Cell Distribution Width 14.1 % (11.5-14.5) Platelet Count 257 x10^3/uL (140-400) Neutrophils (%) (Auto) 67 % (31-73) Lymphocytes (%) (Auto) 19 % (24-48) Monocytes (%) (Auto) 9 % (0-9) Eosinophils (%) (Auto) 5 % (0-3) Basophils (%) (Auto) 1 % (0-3) Neutrophils # (Auto) 6.7 x10^3uL (1.8-7.7) Lymphocytes # (Auto) 1.8 x10^3/uL (1.0-4.8) Monocytes # (Auto) 0.9 x10^3/uL (0.0-1.1) Eosinophils # (Auto) 0.5 x10^3/uL (0.0-0.7) Basophils # (Auto) 0.1 x10^3/uL (0.0-0.2) Sodium Level 135 mmol/L (136-145) Potassium Level 4.0 mmol/L (3.5-5.1) Chloride Level 99 mmol/L (98-107) Carbon Dioxide Level 27 mmol/L (21-32) Anion Gap 9 (6-14) Blood Urea Nitrogen 20 mg/dL (8-26) Creatinine 0.9 mg/dL (0.7-1.3) Estimated GFR (Cockcroft-Gault) 85.5 BUN/Creatinine Ratio 22 (6-20) Glucose Level 106 mg/dL (70-99) Calcium Level 8.8 mg/dL (8.5-10.1) Total Bilirubin 0.5 mg/dL (0.2-1.0) Aspartate Amino Transf (AST/SGOT) 18 U/L (15-37) Alanine Aminotransferase (ALT/SGPT) 30 U/L (16-63) Alkaline Phosphatase 79 U/L (46-116) Lactate Dehydrogenase 170 U/L (85-227) Total Protein 7.4 g/dL (6.4-8.2) Albumin 3.4 g/dL (3.4-5.0) Albumin/Globulin Ratio 0.9 (1.0-1.7) Lipase 170 U/L (73-393) Physical Exams HEENT: Neck Supple W Full Motion Chest: Symmetric Lungs: Clear to Auscultation Heart: S1S2, RRR Abdomen: Soft N/T Extremities: No Edema Neurology: alert, oriented, follow commands Assessment Assessment 1. Abdominal pain; CT, US with cholelithiasis 2. Acute on chronic systolic CHF; improved with diuresis 3. NICM; LVEF 20-25% per recent echo 4. Mild troponin elevation; peak 0.215. Most probably type II, demand ischemia. CP free. Cath 09/2018 without obstructive disease as noted above 5. Hypertension; controlled 6. NSVT; brief episode of 8-beat NSVT noted overnight Recommendations Additional dose of Lasix this am BMP, Mg. Replace electrolytes as warranted Reinforced 2Gm Na diet, 2000cc FR and daily weights. Is to call office if 2-3 # weight gain overnight or 5# in 1 week Continue HF optimization with coreg and lisinopril. Consider Entresto on an outpatient basis Consider AICD implantation in primary prevention of SCD. Will discuss on an outpatient [facility] Supportive care Follow up with Dr. Ahuja as scheduled KARLEE PRITCHETT APRN April 12, 2020 08:24
[2020-04-12] MEDS ORDERED: FUROSEMIDE 40 MG/4 ML VIAL IVP ONE (08:45)
[2020-04-12] MEDS ORDERED: POTASSIUM CHLORIDE 20 MEQ TABLET.ER. PO ONE (09:30)
[2020-04-12 09:45] LABS: CALCIUM 8.9 mg/dL (8.5-10.1); GFR 75.7; POTASSIUM 3.8 mmol/L (3.5-5.1)
[2020-04-12 09:46] LABS: MAGNESIUM 2.1 mg/dL (1.8-2.4)
[2020-04-12] MEDS ORDERED: POTA20TA4 PO (10:30)
[2020-04-12] MEDS ORDERED: FURO80TA3 PO (10:31)
[2020-04-12] MEDS ORDERED: LISI10TA2 PO (10:32)
[2020-04-12] MEDS ORDERED: LISI-334 PO (10:34)
--- NOTE | 2020-04-12 11:29 | DS ---
DATE OF DISCHARGE: 04/12/2020 ATTENDING PHYSICIAN: Dr. Mena. FINAL DISCHARGE DIAGNOSES: 1. Acute exacerbation of congestive heart failure, acute on chronic systolic. 2. Nonischemic cardiomyopathy. 3. Essential hypertension. 4. Chronic obstructive pulmonary disease. 5. Morbid obesity. 6. Nonalcoholic steatohepatitis. 7. Cholelithiasis. 8. Nonspecific abdominal pain, resolved. 9. Hyperlipidemia. HISTORY AND PHYSICAL: This is a 64-year-old gentleman with a known history of nonischemic cardiomyopathy followed by the patient access director. His weight has gone up. He has been ingesting excess amounts of fluids. When he showed up, he had significant vascular congestion on chest x-ray and pedal edema. He was admitted for further treatment and evaluation. PHYSICAL EXAMINATION: Please see the dictated note. PERTINENT LABORATORY AND X-RAY STUDIES: His admission hemoglobin was 14.9 g/dL with a white count of 10,000. Chemistry panel showed stable potassium of 4.0 mEq per liter. The creatinine was 0.9 mg percent. Three sets of cardiac enzymes were at 0.2. This is a chronic nature and this has happened in the past. He had no ischemic symptoms. These are elevated due to stress demand. His lipid panel was unremarkable. His sodium was 135 mEq per liter. He had a chest x-ray done, which showed cardiomegaly and vascular congestion, chronic interstitial lung disease. Because of abdominal pain, I did order an abdominal CT. He has cholelithiasis without any obvious choledocholithiasis or obstructive gallbladder disease. He had a left adrenal myelolipoma, which is stable. He has a fatty liver consistent with nonalcoholic steatohepatitis. There is no evidence of obstruction or other disease process ongoing. COURSE IN THE HOSPITAL: The patient was admitted. He was started on afterload and preload reduction. We increased his Lasix intravenously and I increased his lisinopril dose. He did well. He was given explicit instructions for followup care regarding daily weights and fluid restriction and taking care of the METs. On the third hospital day, he was sent home with an increased dose of lisinopril 20 mg p.o. daily, Lasix 80 mg p.o. daily, Coreg 3.125 mg b.i.d., albuterol as needed, oxycodone p.r.n. pain and potassium 20 mEq p.o. daily. I suggested a followup visit with Dr. [place], his primary care physician in 2 weeks' time. I have also instructed him to get an accurate set of bathroom scales and to weigh himself every day and try to keep within 1 pound plus or minus of his dry weight. The patient was then discharged from our hospital in stable condition with explicit instructions for followup care. FRANCK MENA MD DR: CHRISTIANNE/delia JOB#: [id number] / [id number] layne [address] Dr.
--- NOTE | 2020-04-12 11:55 | DS ---
DATE OF DISCHARGE: 04/12/2020 ATTENDING PHYSICIAN: Dr. Mena. FINAL DISCHARGE DIAGNOSES: 1. Acute exacerbation of congestive heart failure, acute on chronic systolic. 2. Nonischemic cardiomyopathy. 3. Essential hypertension. 4. Chronic obstructive pulmonary disease. 5. Morbid obesity. 6. Nonalcoholic steatohepatitis. 7. Cholelithiasis. 8. Nonspecific abdominal pain, resolved. 9. Hyperlipidemia. HISTORY AND PHYSICAL: This is a 64-year-old gentleman with a known history of nonischemic cardiomyopathy followed by the claims director. His weight has gone up. He has been ingesting excess amounts of fluids. When he showed up, he had significant vascular congestion on chest x-ray and pedal edema. He was admitted for further treatment and evaluation. PHYSICAL EXAMINATION: Please see the dictated note. PERTINENT LABORATORY AND X-RAY STUDIES: His admission hemoglobin was 14.9 g/dL with a white count of 10,000. Chemistry panel showed stable potassium of 4.0 mEq per liter. The creatinine was 0.9 mg percent. Three sets of cardiac enzymes were at 0.2. This is a chronic nature and this has happened in the past. He had no ischemic symptoms. These are elevated due to stress demand. His lipid panel was unremarkable. His sodium was 135 mEq per liter. He had a chest x-ray done, which showed cardiomegaly and vascular congestion, chronic interstitial lung disease. Because of abdominal pain, I did order an abdominal CT. He has cholelithiasis without any obvious choledocholithiasis or obstructive gallbladder disease. He had a left adrenal myelolipoma, which is stable. He has a fatty liver consistent with nonalcoholic steatohepatitis. There is no evidence of obstruction or other disease process ongoing. COURSE IN THE HOSPITAL: The patient was admitted. He was started on afterload and preload reduction. We increased his Lasix intravenously and I increased his lisinopril dose. He did well. He was given explicit instructions for followup care regarding daily weights and fluid restriction and taking care of the METs. On the third hospital day, he was sent home with an increased dose of lisinopril 20 mg p.o. daily, Lasix 80 mg p.o. daily, Coreg 3.125 mg b.i.d., albuterol as needed, oxycodone p.r.n. pain and potassium 20 mEq p.o. daily. I suggested a followup visit with Dr. [place], his primary care physician in 2 weeks' time. I have also instructed him to get an accurate set of bathroom scales and to weigh himself every day and try to keep within 1 pound plus or minus of his dry weight. The patient was then discharged from our hospital in stable condition with explicit instructions for followup care. ADDENDUM In addition to his other meds, Cardiology service was consulted and started him on Entresto. Because of the cough, they are getting some samples for him. He will follow up with Cardiology services. He is getting a daily dose of Entresto. FRANCK MENA MD DR: CHRISTIANNE/delia JOB#: [id number] / [id number] layne [address] Dr.
== END 2020-04-12 10:59 | disposition home or self-care (01) | DRG 292 ==
LOC: ER 13:42 → 1 SOUTH 15:25
PROVIDERS: ADMIT Internal Medicine; ATTEND Internal Medicine
DX: I11.0 Hypertensive heart disease with heart failure (principal); I24.8 Other forms of acute ischemic heart disease; I47.2 Ventricular tachycardia; J84.9 Interstitial pulmonary disease, unspecified; E66.01 Morbid (severe) obesity due to excess calories; I50.23 Acute on chronic systolic (congestive) heart failure; I42.8 Other cardiomyopathies; E78.5 Hyperlipidemia, unspecified; J44.9 Chronic obstructive pulmonary disease, unspecified; K59.00 Constipation, unspecified; K75.81 Nonalcoholic steatohepatitis (NASH); K80.20 Calculus of gallbladder without cholecystitis without obstruction; Z82.49 Family history of ischemic heart disease and other diseases of the circulatory system; Z87.891 Personal history of nicotine dependence
CPT/HCPCS: 36415; 71045; 74177; 76700; 80048; 80053; 82553; 83605; 83615; 83690; 83735; 83880; 84484; 85025; 85610; 85730; 93005; J1940; J3010; Q9967

== ENCOUNTER → 2020-10-31 | Outpatient (CLI) | payer MEDICAID ==
[~2020-10-31] MED LIST changes: +ALBU2.5V8 IH; +CARV3.1230 PO; +FURO80TA3 PO; +LISI-334 PO; +LISI-338 PO; +LISI10TA2 PO; +POTA10TA5 PO; +POTA20TA4 PO
--- NOTE | 2020-10-31 17:13 | RAD ---
EXAM: CHEST 2 VIEWS. HISTORY: Cardiomyopathy. COMPARISON: 04/10/2020. FINDINGS: Frontal and lateral views of the chest are obtained. A left-sided pacemaker has its lead in the right ventricle. There is a calcified granuloma in the right base. There are no confluent infiltrates. There is no pne umothorax or pleural effusion. The heart is not enlarged. There are atherosclerotic calcifications of the aorta. A pectus expanded deformity appears moderate. IMPRESSION: 1. No confluent infiltrates. Electronically signed by: Angela Lloyd MD (10/31/2020 5:11 PM) [facility]
[2020-10-31 17:46] LABS: BASO # 0.1 x10^3/uL (0.0-0.2); BASO % 1 % (0-3); EOS # 0.5 x10^3/uL (0.0-0.7); EOS % 4 % (0-3); HEMATOCRIT 43.2 % (39.0-53.0); HEMOGLOBIN 13.9 g/dL (13.0-17.5); LYMPH # 1.8 x10^3/uL (1.0-4.8); LYMPH % 16 % (24-48); MEAN CORPUSCULAR HEMOGLOBIN 30 pg (25-35); MEAN CORPUSCULAR HGB CONC 32 g/dL (31-37); MEAN CORPUSCULAR VOLUME 92 fL (79-100); MONO # 0.8 x10^3/uL (0.0-1.1); MONO % 7 % (0-9); NEUT # 8.1 x10^3uL (1.8-7.7); NEUT % 72 % (31-73); PLATELET COUNT 270 x10^3/uL (140-400); RED CELL DISTRIBUTION WIDTH 13.3 % (11.5-14.5); WHITE BLOOD COUNT 11.3 x10^3/uL (4.0-11.0)
[2020-10-31 17:57] LABS: ALBUMIN 3.4 g/dL (3.4-5.0); ALBUMIN/GLOBULIN RATIO 0.8 (1.0-1.7); GFR 75.5; POTASSIUM 4.1 mmol/L (3.5-5.1); TOTAL BILIRUBIN 0.3 mg/dL (0.2-1.0); TOTAL PROTEIN 7.8 g/dL (6.4-8.2)
== END ==
LOC: RAD 16:52
PROVIDERS: ATTEND Internal Medicine Cardiovascular Disease
DX: I42.8 Other cardiomyopathies (principal); J98.4 Other disorders of lung; I70.0 Atherosclerosis of aorta; Z95.0 Presence of cardiac pacemaker
CPT/HCPCS: 36415; 71046; 80053; 83880; 85025

== ENCOUNTER 2021-06-10 14:47 | Emergency (ER) | payer MEDICAID ==
[~2021-06-10] VITALS: Ht 165.1 cm; Wt 108.9 kg
[~2021-06-10 14:47] MED LIST changes: -LISI-334 PO; -LISI-338 PO; +LISI-517 PO; +LISI10TA16 PO; -LISI10TA2 PO; +LISI20TA18 PO
[2021-06-10] MEDS ORDERED: IOHEXOL 300 MG/ML 75 ML VIAL. IV ONE (16:30)
--- NOTE | 2021-06-10 16:33 | PHYS DOC ---
Past History Past Medical History: CHF, COPD, Hypertension (PAWAN ALEJANDRO MD) Past Surgical History: No Surgical History (PAWAN ALEJANDRO MD) Smoking: Quit Less Than 1 Year Alcohol Use: None Drug Use: None (PAWAN ALEJANDRO MD) General Adult EDM: Chief Complaint: ABDOMINAL PAIN HPI: HPI: Patient is a 65 year old male with history of COPD on 2.5 LPM NC, heart failure, HTN who presents with approximately a week of upper abdominal pain. Is just above his bellybutton. Does not radiate. It is constant. Associated with nausea when he attempts to eat. Also complaining of abdominal bloating. Has had normal BMs the past few days. States that he has had very early satiety over the past 6 months that has only gotten worse. States that he has a history of a right-sided lung nodule that is received radiation, he is awaiting a follow-up appointment for this. No other cancer history to his knowledge. (PAWAN ALEJANDRO MD) Review of Systems: Review of Systems: Constitutional: Denies fever or chills Eyes: Denies change in visual acuity HENT: Denies nasal congestion or sore throat Respiratory: Denies cough or shortness of breath Cardiovascular: Denies chest pain or edema GI: Abdominal bloating. Abdominal pain. Nausea. No bloody stools or diarrhea or constipation. : Denies dysuria Musculoskeletal: Denies back pain or joint pain Integument: Denies rash Neurologic: Denies headache, focal weakness or sensory changes Endocrine: Denies polyuria or polydipsia Lymphatic: Denies swollen glands Psychiatric: Denies depression or anxiety (PAWAN ALEJANDRO MD) Family History: Family History: No pertinent family history (PAWAN ALEJANDRO MD) Allergies: Allergies: Allergies Coded Allergies Type Severity Reaction Last Updated Verified No Known Drug Allergies 08/25/18 No (PAWAN ALEJANDRO MD) Physical Exam: PE: Constitutional: Well developed, well nourished, no acute distress, non-toxic appearance. [] HENT: Normocephalic, atraumatic, bilateral external ears normal, oropharynx moist, no oral exudates, nose normal. [] Eyes: PERRLA, EOMI, conjunctiva normal, no discharge. [] Neck: Normal range of motion, no tenderness, supple, no stridor. [] Cardiovascular:Heart rate regular rhythm, no murmur [] Lungs & Thorax: Bilateral breath sounds clear to auscultation on 2 L/min nasal cannula. Distant breath sounds bilaterally. [] Abdomen: Tenderness to palpation of the upper abdomen. Distended abdomen. No guarding. [] Skin: Warm, dry, no erythema, no rash. [] Back: No tenderness, no CVA tenderness. [] Extremities: No tenderness, no cyanosis, no clubbing, ROM intact, no edema. [] Neurologic: Alert and oriented X 3, normal motor function, normal sensory function, no focal deficits noted. [] Psychologic: Affect normal, judgement normal, mood normal. [] (PAWAN ALEJANDRO MD) Current Patient Data: Vital Signs: Vital Signs Date Time Temp Pulse Resp B/P (MAP) Pulse Ox O2 Delivery O2 Flow Rate FiO2 06/10/21 15:13 97.9 102 20 140/99 98 Room Air (PAWAN ALEJANDRO MD) EKG: EKG: NA [] (PAWAN ALEJANDRO MD) Radiology/Procedures: Radiology/Procedures: CT abdomen/pelvis [] Impressions: [place] [id number] IMAGING REPORT Signed PATIENT: AMITA ROSARIO ACCOUNT: [id number] : 1955 LOCATION: ER AGE: 65 SEX: M EXAM STATUS: REG ER ORD. PHYSICIAN: PAWAN ALEJANDRO MD REASON: UPPER ABDOMINAL PAIN, N/V PROCEDURE: CT ABD PELV W/ IV CONTRST ONLY CT abdomen and pelvis with contrast PQRS statement: CT scans at this facility use dose reduction including either automated exposure control, iterative reconstructions, and /or weight based ra diation dosing via mA and kV modification when appropriate to reduce radiation dose to as low as reasonably achievable. Contrast: 75 mL Isovue-370 intravenous contrast. HISTORY: Upper abdominal pain, nausea and vomiting. COMPARISON: CT abdomen and pelvis April 11, 2020 Abdomen findings: Cardiomegaly and cardiac pacemaker. At the right lung base are peripheral subpleural groundglass opacities. Lumbar disc osteophytes with spinal canal stenoses. 1 cm gallstone at the gallbladder neck. Calcified splenic granulomas. Left adrenal 3 cm nodule with mixed fat and soft tissue density is stable typical of a myelolipoma. Left kidney somewhat obscured by motion artifact. Subcentimeter right renal lower pole cortical hypodensities too small to characterize grossly stable to prior exam most likely small cyst. Pancreas, right adrenal, liver unremarkable. Appendix is negative. No obstruction or in flammatory changes in GI tract. Aortoiliac artery calcified plaque and tortuosity. No abdominal fluid or adenopathy. Pelvis findings: Prostate is prominent and there could be enlargement of the median lobe at the base the prostate protruding into the floor the bladder this could be due to hyperplasia or neoplasm. Rectum and bones are unremarkable. No pelvic fluid or adenopathy. IMPRESSION: 1. No acute process in the abdomen or pelvis. Appendix is negative. 2. Cholelithiasis. 3. 2 subpleural groundglass opacities at the right lung base. This could represent an infectious/inflammatory process including atypical viral pneumonia. Follow-up CT chest imaging in 3-6 months is advised to document this resolves. 4. Prominence of the prostate, with nodularity at the base of the prostate protruding into the floor of the bladder which could be median lobe hypertrophy from nodular hyperplasia of the prostate versus prostate neoplasm invading the floor of the bladder. 5. Other incidental findings are stable as described above. Electronically signed by: Nieves Valencia MD (06/10/2021 5:10 PM) [facility] [place], [place] DICTATED AND SIGNED BY: NIEVES VALENCIA MD DATE: 06/10/21 170 CC: PAWAN ALEJANDRO MD; STEPHANIE FERMIN MD ~MTH0 0 (PAWAN ALEJANDRO MD) Heart Score: C/O Chest Pain: N/A HEART Score for Chest Pain: HEART Score for Chest Pain Response (Comments) Value History Slighlty/Non-Suspicious 0 Total 0 Risk Factors: Risk Factors: DM, Current or recent (<one month) smoker, HTN, HLP, family history of CAD, obesity. Risk Scores: Score 0 - 3: 2.5% MACE over next 6 weeks - Discharge Home Score 4 - 6: 20.3% MACE over next 6 weeks - Admit for Clinical Observation Score 7 - 10: 72.7% MACE over next 6 weeks - Early Invasive Strategies (PAWAN ALEJANDRO MD) Course & Med Decision Making: Course & Med Decision Making Pertinent Labs and Imaging studies reviewed. (See chart for details) Patient is 65-year-old gentleman with a history of CHF, COPD on 2.5 L per nasal cannula, HTN who presents with approximately a week of worsening abdominal pain, nausea in the setting of 6 months of early satiety. He is not clinically obstructed. He is most tender in the upper abdomen in the midline. We will check for pancreatitis, although not a drinker. We will obtain a CT abdomen/pelvis which will also evaluate for biliary disease as well as m alignancy. Will treat with analgesics and antiemetics in the meantime. 1632 CBC, CMP reassuring. LFTs normal. Lipase negative. CT scan did not show any acute cause for his pain, but did show known right lower lobe nodules, as well as a potential prostate mass that could be benign versus malignant. This will need follow-up with his outpatient doctor and potentially urologist. I have advised the patient of these findings. At this time a urinalysis is pending, but if no significant findings feel that he will be safe for discharge with outpatient follow-up and return precautions. 1730 UA pending at this time. WIll be signed out to oncoming physician, Dr. Joe. 1755 (PAWAN ALEJANDRO MD) Course & Med Decision Making The patient's urinalysis is negative for infection. We will continue with the discharge plan as outlined by Dr. Alejandro. He is stable for discharge at this time. (TEJA JOE DO) Dragon Disclaimer: Dragon Disclaimer: This electronic medical record was generated, in whole or in part, using a voice recognition dictation system. (PAWAN ALEJANDRO MD) Departure Departure: Impression: Primary Impression: Abdominal pain Additional Impressions: Early satiety Ground glass opacity present on imaging of lung Prostate mass Disposition: HOME / SELF CARE / HOMELESS Condition: STABLE Referrals: STEPHANIE FERMIN MD (PCP) Schedule an appointment. Additional Instructions: Your work up did not show a cause of your symptoms. It did show that you had nodules in your right lung that you are aware of. It also showed a mass in your prostate that could be a cancer or could be benign. This will need to be followed up by your PCP and potentially a urologist. If your pain worsens, you have high fevers, chills, nausea, vomiting, or other new/concerning symptoms please return to the emergency department for re- evaluation. Scripts Ondansetron Hcl (ZOFRAN) 4 Mg Tablet 4 MG PO Q4-6HRS PRN for selena for 2 Days, #12 TAB Prov: PAWAN ALEJANDRO MD 06/10/21 PAWAN ALEJANDRO MD Jun 10, 2021 16:33 TEJA JOE DO Jun 10, 2021 18:45
[2021-06-10 16:55] LABS: BASO % 1 % (0-3); EOS # 0.1 x10^3/uL (0.0-0.7); EOS % 2 % (0-3); HEMATOCRIT 38.4 % (39.0-53.0); HEMOGLOBIN 12.9 g/dL (13.0-17.5); LYMPH # 0.9 x10^3/uL (1.0-4.8); LYMPH % 13 % (24-48); MEAN CORPUSCULAR HEMOGLOBIN 30 pg (25-35); MEAN CORPUSCULAR HGB CONC 34 g/dL (31-37); MEAN CORPUSCULAR VOLUME 88 fL (79-100); MONO # 0.5 x10^3/uL (0.0-1.1); MONO % 8 % (0-9); NEUT # 5.5 x10^3uL (1.8-7.7); NEUT % 77 % (31-73); PLATELET COUNT 227 x10^3/uL (140-400); RED BLOOD COUNT 4.37 x10^6/uL (4.30-5.70); RED CELL DISTRIBUTION WIDTH 13.7 % (11.5-14.5); WHITE BLOOD COUNT 7.1 x10^3/uL (4.0-11.0)
[2021-06-10 17:04] LABS: CALCIUM 8.3 mg/dL (8.5-10.1); GFR 75.5; POTASSIUM 4.3 mmol/L (3.5-5.1)
[2021-06-10 17:09] LABS: ALBUMIN 3.3 g/dL (3.4-5.0); ALBUMIN/GLOBULIN RATIO 0.8 (1.0-1.7); TOTAL BILIRUBIN 0.7 mg/dL (0.2-1.0); TOTAL PROTEIN 7.3 g/dL (6.4-8.2)
--- NOTE | 2021-06-10 17:13 | RAD ---
CT abdomen and pelvis with contrast PQRS statement: CT scans at this facility use dose reduction including either automated exposure cont rol, iterative reconstructions, and /or weight based radiation dosing via mA and kV modification when appropriate to reduce radiation dose to as low as reasonably achievable. Contrast: 75 mL Isovue-370 intravenous contrast. HISTORY: Upper abdominal pain, nausea and vomiting. COMPARISON: CT abdomen and pelvis April 11, 2020 Abdomen findings: Cardiomegaly and cardiac pacemaker. At the right lung base are peripheral subpleura l groundglass opacities. Lumbar disc osteophytes with spinal canal stenoses. 1 cm gallstone at the ga llbladder neck. Calcified splenic granulomas. Left adrenal 3 cm nodule with mixed fat and soft tissue density is stable typical of a myelolipoma. Left kidney somewhat obscured by motion artifact. Subcen timeter right renal lower pole cortical hypodensities too small to characterize grossly stable to joseluis or exam most likely small cyst. Pancreas, right adrenal, liver unremarkable. Appendix is negative. No obstruction or inflammatory changes in GI tract. Aortoiliac artery calcified plaque and tortuosity. No abdominal fluid or adenopathy. Pelvis findings: Prostate is prominent and there could be enlargement of the median lobe at the base the prostate protruding into the floor the bladder this could be due to hyperplasia or neoplasm. Rect um and bones are unremarkable. No pelvic fluid or adenopathy. IMPRESSION: 1. No acute process in the abdomen or pelvis. Appendix is negative. 2. Cholelithiasis. 3. 2 subpleural groundglass opacities at the right lung base. This could represent an infectious/infl ammatory process including atypical viral pneumonia. Follow-up CT chest imaging in 3-6 months is advi sed to document this resolves. 4. Prominence of the prostate, with nodularity at the base of the prostate protruding into the floor of the bladder which could be median lobe hypertrophy from nodular hyperplasia of the prostate versus prostate neoplasm invading the floor of the bladder. 5. Other incidental findings are stable as described above. Electronically signed by: Harvey Valencia MD (06/10/2021 5:10 PM) [facility] [place]
[2021-06-10] MEDS ORDERED: ONDA4TAB7 PO (17:54)
[2021-06-10 18:35] VITALS: BP 148/89
[2021-06-10 18:41] LABS: BACTERIA,URINE 0 /HPF (0-FEW); BILIRUBIN,URINE NEG (NEG); CLARITY,URINE CLEAR; COLOR,URINE AMBER; GLUCOSE,URINE NEG (NEG); NITRITE,URINE NEG (NEG); RBC,URINE OCC /HPF (0-2); SQUAMOUS EPITHELIAL CELL,UR MANY /LPF
== END 2021-06-10 18:59 | disposition home or self-care (01) ==
LOC: ER 14:47
DX: J98.4 Other disorders of lung (principal); R68.81 Early satiety; N42.89 Other specified disorders of prostate; I11.0 Hypertensive heart disease with heart failure; I50.9 Heart failure, unspecified; J44.9 Chronic obstructive pulmonary disease, unspecified; Z87.891 Personal history of nicotine dependence
CPT/HCPCS: 36415; 74177; 80053; 81001; 83690; 85025; 99285; Q9967